=== PATIENT | female | born 1955 | race Caucasian/White ===

== ENCOUNTER → 2016-07-01 | Outpatient (CLI) | payer OTHER ==
[~2016-07-01] MED LIST: ACT35 PO; ASPEC81 PO; CALC1CHW57 PO; CLTP PO; FSMUNK; LRT5 PO; MULT-506 PO; MULT-513 PO; OMEG10007 PO
== END | disposition home or self-care (01) ==
LOC: C.MAMM 07:49
PROVIDERS: ATTEND Internal Medicine
DX: M81.0 Age-related osteoporosis without current pathological fracture (principal); M85.89 Other specified disorders of bone density and structure, multiple sites

== ENCOUNTER 2016-09-13 04:04 | Observation (INO) | payer OTHER ==
[~2016-09-13] VITALS: Ht 162.6 cm; Wt 51.0 kg
[~2016-09-13 04:04] MED LIST changes: -CALC1CHW57 PO; -MULT-506 PO
[2016-09-13] MEDS ORDERED: KETOROLAC TROMETHAMINE 30 MG/ML VIAL IV STA (04:26)
[2016-09-13 04:35] LABS: HEMATOCRIT 41.7 % (37-47); MEAN CELL VOLUME 88.2 fL (80-100); MEAN CORPUSCULAR HEMOGLOBIN 29.8 pg (25-34); MEAN CORPUSCULAR HGB CONC 33.8 g/dl (32-36); MEAN PLATELET VOLUME 10.4 fL (7.4-10.4); PLATELET COUNT 174 K/uL (130-400); RED BLOOD COUNT 4.73 M/uL (4.2-5.4); WHITE BLOOD COUNT 6.88 K/uL (4.8-10.8)
[2016-09-13] MEDS ORDERED: MULT-506 PO (04:37)
[2016-09-13] MEDS ORDERED: CALC1CHW57 PO (04:37)
[2016-09-13 04:53] LABS: ALT/SGPT 33 U/L (12-78); AST/SGOT 26 U/L (15-37); BLOOD UREA NITROGEN 11 mg/dl (7-18); BUN/CREATININE RATIO 12.2 (10-20); CALCIUM 8.5 mg/dl (8.5-10.1); CARBON DIOXIDE 33 mmol/L (21-32); CHLORIDE 107 mmol/L (98-107); CREATININE 0.88 mg/dl (0.60-1.20); GLUCOSE 85 mg/dl (70-99); POTASSIUM 4.1 mmol/L (3.5-5.1); SODIUM 144 mmol/L (136-145)
[2016-09-13 04:58] LABS: ALB/GLOB RATIO 1.5 (0.9-2); ALKALINE PHOSPHATASE 68 U/L (45-117); CKMB/CK RATIO 1.6 (0-3.0)
--- NOTE | 2016-09-13 04:58 | EMERGENCY ROOM VISIT NOTE ---
History Report prepared by Yens: Angela Sarmiento Under the Supervision of: Dr. Jessica Meyer D.O. First contact with patient: 04:14 Chief Complaint: CHEST PAIN Stated Complaint: CHEST PAIN History of Present Illness The patient is a 61 year old female who presents to the Emergency Room with complaints of persistent left sided chest pain starting a few minutes prior to arrival. She woke up with the chest discomfort. She denies any chest pain or discomfort prior to going to sleep. The patient cleaned and stained the deck all day two days ago. Her chest pain has improved since its initial onset. She currently rates a pain intensity of 2-3/10. She has worsening pain with lying down flat on her back. She denies any worsening pain with palpation or with movement of the left arm. Yesterday evening, the patient started having a headache. She took Tylenol around 11 pm with some relief. She denies any heart burn symptoms, diaphoresis, shortness of breath, nausea, vomiting, new lower extremity cramping/swelling, or any other complaints. Her mother had a myocardial infarction at 54 years old and her brother had a stroke at 58 years old. Due to her family history, the patient has routine cardiac work up every few years. The last time she received cardiac work up was about 4-5 years ago which was negative. The patient has borderline high cholesterol. The patient describes herself to be an active person. Source of History: patient Onset: a few minutes prior to arrival Position: chest (left) Symptom Intensity: 2-3/10 Timing: other (persistent) Modifying Factors (Worsening): other (lying down flat on back) Associated Symptoms: No diaphoresis, No SOB, No nausea, No vomiting Review of Systems See HPI for pertinent positives & negatives. A total of 10 systems reviewed and were otherwise negative. Past Medical & Surgical Medical Problems: (1) Borderline high cholesterol (2) Bunion, right foot Family History Cancer Diabetes mellitus Hypertension Lung disease Social History Smoking Status: Never Smoker Alcohol Use: none Marital Status: Housing Status: lives with significant other Occupation Status: employed Current/Historical Medications Scheduled Calcium W/ Vitamins D & K (Calcium + D), 1 TAB PO DAILY Fish Oil ([place]-3), 1 CAP PO DAILY Multivitamin (Multivitamin), 1 TAB PO DAILY Allergies Coded Allergies: Sulfa Antibiotics (Verified Allergy, Unknown, UNKNOWN, 09/13/16) Physical Exam Vital Signs Date Time Temp Pulse Resp B/P (MAP) Pulse Ox O2 Delivery O2 Flow Rate FiO2 09/13/16 06:15 48 16 146/74 98 Room Air 09/13/16 04:24 47 09/13/16 04:22 97 Room Air 09/13/16 04:18 53 18 156/74 100 Room Air 09/13/16 04:18 100 Room Air 09/13/16 04:09 36.4 53 20 120/69 99 Room Air Physical Exam HEENT: Head - normocephalic and atraumatic Pupils are equal, round, and reactive to light. Extraocular eye muscles are intact, and sclera are anicteric. Nose - moist nasal mucosa without discharge. Mouth - moist buccal mucosa. Oropharynx is nonerythematous and there is no tonsillar exudate or edema noted. Neck: Supple; no JVD, nuchal rigidity, cervical lymphadenopathy. Heart: Regular rate and rhythm. There is a normal S1 and S2 with no murmurs, clicks, or gallops appreciated. Lungs: Clear to auscultation bilaterally with no wheezes, rales, or rhonchi. Abdomen: Soft, completely nontender, nondistended, with good bowel sounds. There are no palpable pulsatile masses or hepatosplenomegaly. There is no guarding, rigidity, or rebound noted. Extremities: No evidence of cyanosis, clubbing, or edema. There are easily palpable peripheral pulses. Skin: warm and dry with good turgor and no rashes. Medical Decision & Procedures ER Provider Diagnostic Interpretation: X-ray results as stated below per interpretation by me: CHEST X-RAY No cardiomegaly, no pneumothorax, no pulmonary infiltrates. Laboratory Results 09/13/16 04:20 Red Blood Count 4.73, Mean Corpuscular Volume 88.2, Mean Corpuscular Hemoglobin 29.8, Mean Corpuscular Hemoglobin Concent 33.8, Mean Platelet Volume 10.4 09/13/16 04:20 Test 09/13/16 04:20 White Blood Count 6.88 K/uL (4.8-10.8) Red Blood Count 4.73 M/uL (4.2-5.4) Hemoglobin 14.1 g/dL (12.0-16.0) Hematocrit 41.7 % (37-47) Mean Corpuscular Volume 88.2 fL (80-100) Mean Corpuscular Hemoglobin 29.8 pg (25-34) Mean Corpuscular Hemoglobin Concent 33.8 g/dl (32-36) Platelet Count 174 K/uL (130-400) Mean Platelet Volume 10.4 fL (7.4-10.4) RDW Standard Deviation 41.0 fL (36.4-46.3) RDW Coefficient of Variation 12.7 % (11.5-14.5) Neutrophils % (Manual) 36.5 % Lymphocytes % (Manual) 41.8 % Variant Lymphocytes % (manual) 17.4 % Monocytes % (Manual) 1.7 % Eosinophils % (Manual) 2.6 % Neutrophils # (Manual) 2.51 K/uL (1.4-6.5) Total Absolute Neutrophils 2.51 K/uL (1.4-6.5) Lymphocytes # (Manual) 2.88 K/uL (1.2-3.4) Absolute Variant Lymphocytes 1.20 K/uL Total Absolute Lymphocytes 4.07 K/uL (1.2-3.4) Monocytes # (Manual) 0.12 K/uL (0.11-0.59) Eosinophils # (Manual) 0.18 K/uL (0-0.5) Smudge Cells PRESENT Toxic Vacuolation 1+ Ovalocytes 1+ Anion Gap 4.0 mmol/L (3-11) Est Creatinine Clear Calc Drug Dose 56.4 ml/min Estimated GFR () 82.2 Estimated GFR (Non- 70.9 BUN/Creatinine Ratio 12.2 (10-20) Calcium Level 8.5 mg/dl (8.5-10.1) Magnesium Level 2.3 mg/dl (1.8-2.4) Total Bilirubin 0.4 mg/dl (0.2-1) Aspartate Amino Transf (AST/SGOT) 26 U/L (15-37) Alanine Aminotransferase (ALT/SGPT) 33 U/L (12-78) Alkaline Phosphatase 68 U/L (45-117) Total Creatine Kinase 83 U/L (26-192) Creatine Kinase MB 1.3 ng/ml (0.5-3.6) Creatine Kinase MB Ratio 1.6 (0-3.0) Troponin I < 0.015 ng/ml (0-0.045) Total Protein 6.6 gm/dl (6.4-8.2) Albumin 4.0 gm/dl (3.4-5.0) Globulin 2.6 gm/dl (2.5-4.0) Albumin/Globulin Ratio 1.5 (0.9-2) Thyroid Stimulating Hormone (TSH) 2.950 uIu/ml (0.300-4.500) Laboratory results per my review. Medications Administered Medications (Trade) Dose Ordered Sig/Isrrael Route Start Time Stop Time Status Last Admin Dose Admin Ketorolac Tromethamine (Toradol Inj) 30 mg NOW STAT IV 09/13/16 04:26 09/13/16 04:28 DC 09/13/16 04:26 30 MG Procedure Toradol Inj 30 mg IV ECG Indication: chest pain Rate (beats per minute): 50 Rhythm: sinus bradycardia Findings: 1st degree AV block, no acute ischemic change, no ectopy ED Course 0414: Past medical records reviewed. The patient was evaluated in room A03. A complete history and physical exam was performed. An IV lock was initiated and labs are drawn as above. A twelve-lead EKG was obtained as described above. Patient was found to have normal blood pressure on screening and does not require follow-up. I attest that I have personally reviewed the patient's current medication list. 0426: Toradol Inj 30 mg IV 0522: Upon reevaluation, the patient reports some relief with Toradol. She is concerned about her heart due to her extensive family history of heart disease. I discussed findings and results with her. She verbalized agreement of the treatment plan. The patient will be evaluated for further management and care. 0531: I discussed the patient's case with Dr. Amanda, from [facility]. Medical Decision The patient presents to the Emergency Room with complaints of chest pain. Differential diagnosis includes but is not limited to musculoskeletal chest wall pain, pleurisy, costochondritis, cardiac ischemia. Her labs showed normal white count, stable, normal renal function and glucose, normal LFTs, negative cardiac enzymes. The patient is known to have mildly elevated cholesterol. It appears that her last cardiac stress test was in 2009. She does have significant family history for heart disease. I believe that she will require second set of cardiac enzymes to be ruled out and then possible cardiology evaluation and stress testing. I discussed the case with the [facility] and they will evaluate for further management. Consults Time Called: 529 Consulting Physician: Dr. Amanda, from [facility] Returned Call: 05 I discussed the patient's case with Dr. Amanda, from [facility]. Impression Primary Impression: Substernal chest pain Scribe Attestation The scribe's documentation has been prepared under my direction and personally reviewed by me in its entirety. I confirm that the note above accurately reflects all work, treatment, procedures, and medical decision making performed by me. Departure Information Dispostion Being Evaluated By Hospitalist Referrals Yassine Gonsales, D.O. (PCP) Patient Instructions My [facility]
[2016-09-13 05:46] LABS: COMPLETE YES; EOSINOPHIL % 2.6 %; LYMPH ABS # 2.88 K/uL (1.2-3.4); LYMPHOCYTE % 41.8 %; NEUTROPHILS % 36.5 %; OVALOCYTES 1+; SMUDGE CELLS PRESENT; VACUOLIZATION 1+; VARIANT LYMPHOCYTE % 17.4 %
[2016-09-13 06:15] VITALS: O2SAT 98
[2016-09-13 06:19] LABS: MAGNESIUM 2.3 mg/dl (1.8-2.4)
[2016-09-13 06:23] LABS: PARTIAL THROMBOPLASTIN RATIO 1.1
[2016-09-13] MEDS ORDERED: SODIUM CHLORIDE 0.45% 1000ML 1,000 ML IV SCH (06:49)
[2016-09-13] MEDS ORDERED: ALUMINUM/MAGNESIUM SUSP 30 ML UDC PO STA (06:49)
[2016-09-13] MEDS ORDERED: ASPIRIN 81 MG ECTAB PO STA (06:49)
[2016-09-13] MEDS ORDERED: NITROGLYCERIN 0.4 MG SL PER TAB CHARGE SL PRN (07:00)
[2016-09-13] MEDS ORDERED: ONDANSETRON INJ 2 MG/ML 2 ML VIAL IV PRN (07:00)
[2016-09-13] MEDS ORDERED: TRAMADOL HCL 50 MG TAB PO PRN (07:00)
[2016-09-13] MEDS ORDERED: ACETAMINOPHEN 325 MG TAB PO PRN (07:00)
[2016-09-13] MEDS ORDERED: LORAZEPAM 2 MG/ML 1 ML VIAL IV PRN (07:00)
[2016-09-13] MEDS ORDERED: HYDROmorphone INJ 1 MG/ML SYR IV PRN (07:00)
--- NOTE | 2016-09-13 07:27 | HISTORY & PHYSICAL EXAMINATION ---
DATE OF ADMISSION: 09/13/2016 PRIMARY CARE PHYSICIAN: Dr. Gonsales. CHIEF COMPLAINT: Chest pain. HISTORY OF PRESENT ILLNESS: History obtained from the patient and records. Medical history is significant for osteoporosis, skin cancer per surgery, hyperlipidemia. Yesterday, the patient had a busy time with ministry work. This morning, the patient woke up with left-sided chest pain, pressure like, no shortness of breath, no fever, no chills, no cough. Relief with Toradol given in the Emergency Room. MEDICAL HISTORY: As above. She had a normal stress echo in 2009 for chest pain attributed possibly from reflux from biphosphonate tx. SURGERIES: She has had bunion surgery, skin cancer surgery. HOME MEDICATIONS: Include Prolia, fish oil, calcium plus D, multivitamins, albuterol. FAMILY HISTORY: Heart disease. PERSONAL AND SOCIAL HISTORY: Nonsmoker, no chronic intake of alcoholic beverages. ministry work. REVIEW OF SYSTEMS: As per HPI, all other ROS negative. PHYSICAL EXAMINATION: VITAL SIGNS: Blood pressure was noted to be 156/80, pulse rate 50, respiratory rate 18, temperature 36.6, sats 98 on room air. GENERAL: Noted to be slightly anxious, no resp distress, looks younger for stated age. SKIN: Normal color. HEENT: [place] palpebral conjunctivae. Dry mucosa. NECK: No JVD. Supple. CHEST: Clear. No anterior chest wall tenderness. HEART: Bradycardic. ABDOMEN: Soft. EXTREMITIES: No edema, no tenderness. NEUROLOGIC: No gross focality. LABS: Hemoglobin 14, hematocrit 41, white cells 6.8, platelets 174. Sodium 144, potassium 4, chloride 104, CO2 30, BUN 11, creatinine 0.8, glucose 85. Troponin normal. 2016 lipid profile, cholesterol 206, HDL 70, triglycerides 60, LDL 123. Chest x-ray as per my interpretation : no infiltrate. EKG as per my interpretation : sinus bradycardia. 1AVB, no ischemia, PRWP ASSESSMENT: 1. Atypical chest pain pulmonary embolism versus acute coronary syndrome. 2. Situational hypertension 3. bradycardia, asymptomatic, poss chronic, px noted to have bradycardic episodes since 2007 4. osteoporosis. PLAN: Observation PCU. PE workup if D-dimer abnormal. Otherwise, stress test if next troponin normal. Aspirin for CAD prevention until ACS is ruled out. DVT prophylaxis. Lovenox subQ. Full code. MTDD
[2016-09-13 07:44] VITALS: BP 120/70; PULSE 48; TEMP 36.5; O2SAT 97
--- NOTE | 2016-09-13 07:45 | DIAGNOSTIC IMAGING REPORT ---
CHEST ONE VIEW PORTABLE CLINICAL HISTORY: Chest pain. COMPARISON STUDY: Chest radiograph October 24, 2007. FINDINGS: The lung volumes are normal. There is no pneumothorax or pleural effusion. Cardiac size is normal. Mediastinal contours are normal. There is no evidence of pulmonary edema. The patient is mildly rotated. IMPRESSION: No acute cardiopulmonary findings. Electronically signed by: Kashif Caraballo M.D. 09/13/2016 7:44 AM Dictated Date/Time: 09/13/2016 7:43 AM
[2016-09-13] MEDS ORDERED: IV FLUIDS COMPLETED PRN (08:00)
[2016-09-13] MEDS ORDERED: MULTIVITAMIN TAB PO SCH (09:00)
[2016-09-13 09:02] LABS: PROTHROMBIN TIME (PATIENT) 10.9 SECONDS (9.0-12.0)
[2016-09-13 09:25] VITALS: Ht 162.6 cm; Wt 51.0 kg
[2016-09-13] MEDS ORDERED: ENOXAPARIN 30 MG/0.3 ML SYR SC SCH (10:00)
--- NOTE | 2016-09-13 12:35 | EXERCISE STRESS ECHO ---
*NOTICE TO RECEIVING [employer]Y This information is strictly Confidential and protected under [place] law. [place] law prohibits you from making any further disclosure of this information unless further disclosure is expressly permitted by the written consent of the person to whom it pertains or is authorized by law. A general authorization for the release of medical or other information is not sufficient for this purpose. Hospital accepts no responsibility if the information is made available to any other person, INCLUDING THE PATIENT. Interpretation Summary * Name: ANJEL ZAVALETA Study Date: 09/13/2016 10:10 AM BP: 138/67 mmHg * Patient Location: [facility]\S\N280\S\2 HR: 47 * : 1955 (M/d/yyyy) Gender: Female Height: 64 in * Age: 61 yrs Ethnicity: [place] Weight: 117 lb * Ordering Physician: Willard Amanda * Referring Physician: TRAVIS * Performed By: Jennifer Leung RDCS * * Reason For Study: CHEST PAIN * BSA: 1.6 m2 * The study was technically adequate. * -- Conclusions -- * STRESS STUDY: * Normal exercise stress echocardiogram. * No echocardiographic or ECG evidence of myocardial ischemia having achieved heart rate adequate for diagnostic purposes. * No symptoms suggestive of angina were induced. * The heart rate and blood pressure responses to exercise were normal. * RESTING STUDY: * Mild aortic regurgitation is present. Procedure Details * ECHOEX, CPT #[id number] * ECHO DOPPLER, CPT #[id number] * ECHO COLOR FLOW, CPT #[id number] Left Ventricle * The left ventricle is normal in size. * There is normal left ventricular wall thickness. * Left ventricular systolic function is normal. * Ejection Fraction = 55-60%. * Resting wall motion: Normal. Stress wall motion: Appropriate increase in Left ventricular systolic function and decrease in cavity size. No stress induced segmental wall motion abnormalities. Right Ventricle * The right ventricle is normal in size and function. Atria * The left atrial size is normal. * Right atrial size is normal. * No ASD detected; PFO is not assessed. Mitral Valve * The mitral valve is normal. * There is no mitral valve stenosis. * There is trace mitral regurgitation. Tricuspid Valve * The tricuspid valve is normal. * There is no tricuspid stenosis. * There is trace tricuspid regurgitation. Aortic Valve * The aortic valve is trileaflet. * No hemodynamically significant valvular aortic stenosis. * Mild aortic regurgitation. Pulmonic Valve * The pulmonic valve is not well visualized. Great Vessels * The aortic root is normal size. Pericardium * There is no pericardial effusion. Stress Parameters * Normal baseline electrocardiogram. * The stress ECG response was normal * No arrhythmia were noted with stress. * The stress portion of this study was personally supervised by the undersigned interpreting physician. * Rest heart rate was '47' BPM. * Rest blood pressure was '138/67' * Maximum heart rate achieved was 153 bpm. * Maximum heart rate was 96 % of maximum age-predicted heart rate. * Maximum blood pressure was '192/63' * Total exercise time was '9:01' * Maximum exercise MET level achieved was '10.10' METS * Maximum treadmill speed was '3.40' miles per hour. * Maximum treadmill elevation was '14.30'% grade. * Exercise was terminated due to 'ACHIEVING TARGET HR' Left Ventricular Diastolic Function * The LV diastolic function is normal. MMode 2D Measurements and Calculations IVSd 0.79 cm IVSs 1.0 cm LVIDd 3.9 cm LVIDs 2.6 cm LVPWd 0.83 cm LVPWs 1.2 cm IVS/LVPW 0.95 FS 35.0 % EDV(Teich) 67.1 ml ESV(Teich) 23.6 ml EF(Teich) 64.9 % EDV(cubed) 60.7 ml ESV(cubed) 16.7 ml EF(cubed) 72.5 % % IVS thick 32.0 % % LVPW thick 40.0 % LV mass(C)d 91.9 grams LV mass(C)dI 59.0 grams/m\S\2 LV mass(C)s 76.0 grams LV mass(C)sI 48.8 grams/m\S\2 SV(Teich) 43.5 ml SI(Teich) 28.0 ml/m\S\2 SV(cubed) 44.0 ml SI(cubed) 28.2 ml/m\S\2 Ao root diam 2.9 cm Ao root area 6.5 cm\S\2 LA dimension 2.6 cm LA/Ao 0.92 LVAd ap4 21.9 cm\S\2 LVLd ap4 7.6 cm EDV(MOD-sp4) 51.1 ml EDV(sp4-el) 53.8 ml LVAs ap4 12.0 cm\S\2 LVLs ap4 6.1 cm ESV(MOD-sp4) 19.3 ml ESV(sp4-el) 20.1 ml EF(MOD-sp4) 62.2 % EF(sp4-el) 62.6 % LVAd ap2 29.1 cm\S\2 LVLd ap2 8.0 cm EDV(MOD-sp2) 88.6 ml EDV(sp2-el) 90.4 ml LVAs ap2 14.0 cm\S\2 LVLs ap2 6.2 cm ESV(MOD-sp2) 25.3 ml ESV(sp2-el) 26.8 ml EF(MOD-sp2) 71.5 % EF(sp2-el) 70.4 % LVLd %diff 4.9 % EDV(MOD-bp) 69.3 ml LVLs %diff 1.4 % ESV(MOD-bp) 22.4 ml EF(MOD-bp) 67.7 % SV(MOD-sp4) 31.8 ml SI(MOD-sp4) 20.4 ml/m\S\2 SV(MOD-sp2) 63.3 ml SI(MOD-sp2) 40.6 ml/m\S\2 SV(MOD-bp) 47.0 ml SI(MOD-bp) 30.2 ml/m\S\2 SV(sp4-el) 33.7 ml SI(sp4-el) 21.6 ml/m\S\2 SV(sp2-el) 63.6 ml SI(sp2-el) 40.9 ml/m\S\2 Doppler Measurements and Calculations MV E max arsen 110.5 cm/sec MV A max arsen 58.0 cm/sec MV E/A 1.9 MV dec time 0.19 sec Ao V2 max 151.2 cm/sec Ao max PG 9.1 mmHg Ao max PG (full) 4.6 mmHg AI max arsen 436.0 cm/sec AI max PG 76.1 mmHg AI dec slope 144.3 cm/sec\S\2 AI P1/2t 885.0 msec LV V1 max PG 4.6 mmHg LV V1 max 106.7 cm/sec
--- NOTE | 2016-09-13 14:02 | Progress Note ---
Internal Med Progress Note Date of Service: Sep 13, 2016. Provider Documentation: SUBJECTIVE: Patient is doing better. Left chest pain has improved with pain medication No sob, cough, fever, chills, nausea, vomiting. OBJECTIVE: Vital Signs-as noted below Exam: General-AAOX3 , no distress Neck-Supple Lungs-AEBE, no wheezing, crackles Heart-S1, S2 normal, no murmurs Abdomen-Soft,non tender, non distended, BS present Extremities- No edema Lab data as noted below. ASSESSMENT & PLAN: ASSESSMENT AND PLAN : ATYPICAL CHEST PAIN: Improved Ruled out ischemia. Likely musculoskeletal Work up- Stress echo- normal, EF 60%; Mild AR, D dimer- negative, CXR- no acute abnormalities, EKG- no acute ischemic changes, Troponin in x 2 pulmonary embolism versus acute coronary syndrome. MILD AR - per Echo -Needs Echo follow up in 1-2 years. TRANSIENT BRADYCARDIA HR dropped to 48- lowest, but overall in 50s -Active in her daily life - walks with her dogs 2-3 times up the hill -Monitor outpatient OSTEOPOROSIS -Continue with DVT prophylaxis. Lovenox subQ. Full code. DISPOSITION Okay to discharge home today Vital Signs: Date Time Temp Pulse Resp B/P (MAP) Pulse Ox O2 Delivery O2 Flow Rate FiO2 09/13/16 12:15 Room Air 09/13/16 09:25 Room Air 09/13/16 07:44 36.5 48 16 120/70 (87) 97 Room Air 09/13/16 06:58 57 09/13/16 06:15 48 16 146/74 98 Room Air 09/13/16 04:24 47 09/13/16 04:22 97 Room Air 09/13/16 04:18 53 18 156/74 100 Room Air 09/13/16 04:18 100 Room Air 09/13/16 04:09 36.4 53 20 120/69 99 Room Air Lab Results: Results Past 24 Hours Test 09/13/16 04:20 09/13/16 09:50 Range/Units White Blood Count 6.88 4.8-10.8 K/uL Red Blood Count 4.73 4.2-5.4 M/uL Hemoglobin 14.1 12.0-16.0 g/dL Hematocrit 41.7 37-47 % Mean Corpuscular Volume 88.2 80-100 fL Mean Corpuscular Hemoglobin 29.8 25-34 pg Mean Corpuscular Hemoglobin Concent 33.8 32-36 g/dl Platelet Count 174 130-400 K/uL Mean Platelet Volume 10.4 7.4-10.4 fL RDW Standard Deviation 41.0 36.4-46.3 fL RDW Coefficient of Variation 12.7 11.5-14.5 % Neutrophils % (Manual) 36.5 % Lymphocytes % (Manual) 41.8 % Variant Lymphocytes % (manual) 17.4 % Monocytes % (Manual) 1.7 % Eosinophils % (Manual) 2.6 % Neutrophils # (Manual) 2.51 1.4-6.5 K/uL Total Absolute Neutrophils 2.51 1.4-6.5 K/uL Lymphocytes # (Manual) 2.88 1.2-3.4 K/uL Absolute Variant Lymphocytes 1.20 K/uL Total Absolute Lymphocytes 4.07 1.2-3.4 K/uL Monocytes # (Manual) 0.12 0.11-0.59 K/uL Eosinophils # (Manual) 0.18 0-0.5 K/uL Smudge Cells PRESENT Toxic Vacuolation 1+ Ovalocytes 1+ Prothrombin Time 10.9 9.0-12.0 SECONDS Prothromb Time International Ratio 1.0 0.9-1.1 Activated Partial Thromboplast Time 28.5 21.0-31.0 SECONDS Partial Thromboplastin Ratio 1.1 D-Dimer < 190 0-500 ug/L FEU Sodium Level 144 136-145 mmol/L Potassium Level 4.1 3.5-5.1 mmol/L Chloride Level 107 98-107 mmol/L Carbon Dioxide Level 33 21-32 mmol/L Anion Gap 4.0 3-11 mmol/L Blood Urea Nitrogen 11 7-18 mg/dl Creatinine 0.88 0.60-1.20 mg/dl Est Creatinine Clear Calc Drug Dose 56.4 ml/min Estimated GFR () 82.2 Estimated GFR (Non- 70.9 BUN/Creatinine Ratio 12.2 10-20 Random Glucose 85 70-99 mg/dl Calcium Level 8.5 8.5-10.1 mg/dl Magnesium Level 2.3 1.8-2.4 mg/dl Total Bilirubin 0.4 0.2-1 mg/dl Aspartate Amino Transf (AST/SGOT) 26 15-37 U/L Alanine Aminotransferase (ALT/SGPT) 33 12-78 U/L Alkaline Phosphatase 68 45-117 U/L Total Creatine Kinase 83 26-192 U/L Creatine Kinase MB 1.3 0.5-3.6 ng/ml Creatine Kinase MB Ratio 1.6 0-3.0 Troponin I < 0.015 < 0.015 0-0.045 ng/ml Total Protein 6.6 6.4-8.2 gm/dl Albumin 4.0 3.4-5.0 gm/dl Globulin 2.6 2.5-4.0 gm/dl Albumin/Globulin Ratio 1.5 0.9-2 Lipase 284 73-393 U/L Thyroid Stimulating Hormone (TSH) 2.950 0.300-4.500 uIu/ml
--- NOTE | 2016-09-13 14:06 | Discharge Summary ---
Discharge Summary Date of Service Sep 13, 2016. Discharge Summary Admission Date: Sep 13, 2016 at 06:23 Discharge Date: Sep 13, 2016 Discharge Disposition: Home Principal Diagnosis: 1. Chest pain, acute ischemia ruled out Secondary Diagnoses/Problems: 1. Osteoporosis Procedures: Tele monitoring Stress Echocardiogram Serial EKG Serial Troponin CXR Consultations: None Pending Studies/Follow-Up: Instructions / Follow-Up Instructions / Follow-Up No changes in medications FOLLOW UP 1. Follow up with Dr Gonsales 09/20/16 at 1:05 PM MONITOR Follow up Echocardiogram in 1-2 years for mild aortic regurgitation newly diagnosed Medication Reconciliation Continued Medications: Calcium W/ Vitamins D & K (Calcium + D) 1 Chw Chw 1 TAB PO DAILY Fish Oil ([place]-3) 1 Ea Cap 1 CAP PO DAILY Multivitamin (Multivitamin) Tab 1 TAB PO DAILY, TAB Admission Information HPI (per Admitting provider): HISTORY OF PRESENT ILLNESS: History obtained from the patient and records. Medical history is significant for osteoporosis, skin cancer per surgery, hyperlipidemia. Yesterday, the patient had a busy time with [employer] work. This morning, the patient woke up with left-sided chest pain, pressure like, no shortness of breath, no fever, no chills, no cough. Relief with Toradol given in the Emergency Room. Hospital Course ASSESSMENT AND PLAN : ATYPICAL CHEST PAIN: Improved Ruled out ischemia. Likely musculoskeletal Work up- Stress echo- normal, EF 60%; Mild AR, D dimer- negative, CXR- no acute abnormalities, EKG- no acute ischemic changes, Troponin in x 2 pulmonary embolism versus acute coronary syndrome. MILD AR - per Echo -Needs Echo follow up in 1-2 years. TRANSIENT BRADYCARDIA HR dropped to 48- lowest, but overall in 50s -Active in her daily life - walks with her dogs 2-3 times up the hill -Monitor outpatient OSTEOPOROSIS -Continue with DVT prophylaxis. Lovenox subQ. Full code. DISPOSITION Okay to discharge home today Total time spent on discharge = 25 minutes This includes examination of the patient, discharge planning, medication reconciliation, and communication with other providers. Discharge Instructions Activity Recommendations Activity Limitations: resume your previous activity . Instructions / Follow-Up Instructions / Follow-Up No changes in medications FOLLOW UP 1. Follow up with Dr Gonsales 09/20/16 at 1:05 PM MONITOR Follow up Echocardiogram in 1-2 years for mild aortic regurgitation newly diagnosed Current Hospital Diet Patient's current hospital diet: Regular Diet Discharge Diet Recommended Diet: Regular Diet Pending Studies Studies pending at discharge: no Medical Emergencies . Who to Call and When: Medical Emergencies: If at any time you feel your situation is an emergency, please call 911 immediately. . Non-Emergent Contact Non-Emergency issues call your: Primary Care Provider . . "Provider Documentation" section prepared by Winifred Ríos. . VTE Core Measure Inpt VTE Proph given/why not?: Enoxaparin (Lovenox)SQ
[2016-09-13 14:13] VITALS: BP 120/70; PULSE 48; TEMP 36.5; O2SAT 97
[2016-09-14] MEDS ORDERED: ASPIRIN 81 MG ECTAB PO SCH (09:00)
== END 2016-09-13 14:25 | disposition home or self-care (01) ==
LOC: C.EDB 04:05 → C.MED 06:23 → ENRESERV 06:57
PROVIDERS: ADMIT Internal Medicine; ATTEND Internal Medicine
DX: R07.2 Precordial pain (principal); I35.1 Nonrheumatic aortic (valve) insufficiency; M81.0 Age-related osteoporosis without current pathological fracture; R00.1 Bradycardia, unspecified; E78.5 Hyperlipidemia, unspecified; Z82.49 Family history of ischemic heart disease and other diseases of the circulatory system; Z83.3 Family history of diabetes mellitus; Z85.820 Personal history of malignant melanoma of skin

== ENCOUNTER 2017-03-14 02:12 | Emergency (ER) | payer OTHER ==
[~2017-03-14] VITALS: Ht 162.6 cm; Wt 52.8 kg
[~2017-03-14 02:12] MED LIST changes: -ACT35 PO; -ASPEC81 PO; +CALC1CHW57 PO; -CLTP PO; -FSMUNK; -LRT5 PO; +MULT-506 PO; -MULT-513 PO
[2017-03-14 02:15] VITALS: TEMP 36.4; Ht 162.6 cm; Wt 52.8 kg
[2017-03-14] MEDS ORDERED: ONDANSETRON INJ 2 MG/ML 2 ML VIAL IV STA (02:33)
[2017-03-14] MEDS ORDERED: SODIUM CHLORIDE 0.9% 1000ML 1,000 ML IV ONE ×2 (02:45→04:15)
[2017-03-14 03:02] LABS: BASO % 0.2 %; BASO ABS # 0.02 K/uL (0-0.2); COMPLETE YES; HEMATOCRIT 42.2 % (37-47); IG% 0.1 %; LYMPH % 21.1 %; LYMPH ABS # 1.85 K/uL (1.2-3.4); MEAN CELL VOLUME 87.7 fL (80-100); MEAN CORPUSCULAR HEMOGLOBIN 30.1 pg (25-34); MEAN CORPUSCULAR HGB CONC 34.4 g/dl (32-36); MEAN PLATELET VOLUME 10.3 fL (7.4-10.4); NEUT % 73.6 %; PLATELET COUNT 138 K/uL (130-400); RED BLOOD COUNT 4.81 M/uL (4.2-5.4); WHITE BLOOD COUNT 8.76 K/uL (4.8-10.8)
[2017-03-14 03:06] LABS: URINE APPEARANCE CLEAR (CLEAR); URINE BILIRUBIN NEG (NEG); URINE COLOR YELLOW; URINE NITRITE NEG (NEG); UROBILINOGEN NEG (NEG); ZZUR CULT IF INDIC CLEAN CATCH NO
[2017-03-14 03:13] LABS: MANUAL MICROSCOPIC REQUIRED? YES; REVIEW REQ? NO
[2017-03-14 03:29] LABS: BUN/CREATININE RATIO 17.3 (10-20); CALCIUM 8.5 mg/dl (8.5-10.1); CREATININE 1.03 mg/dl (0.60-1.20); MAGNESIUM 1.7 mg/dl (1.8-2.4); POTASSIUM 3.4 mmol/L (3.5-5.1)
[2017-03-14 03:32] LABS: ALB/GLOB RATIO 1.4 (0.9-2)
[2017-03-14 03:40] LABS: URINE RBC 0-4 /hpf (0-4)
[2017-03-14 03:41] LABS: URINE BACTERIA NEG (NEG)
[2017-03-14 05:09] VITALS: BP 100/55; PULSE 74; O2SAT 98
[2017-03-14] MEDS ORDERED: ONDANSETRON HOME PACK 4MG OD TAB PO ONE (05:15)
--- NOTE | 2017-03-14 07:21 | DIAGNOSTIC IMAGING REPORT ---
PA CHEST RADIOGRAPH AND UPRIGHT AND SUPINE AP RADIOGRAPHS OF THE ABDOMEN CLINICAL HISTORY: Nausea, vomiting and diarrhea. COMPARISON STUDY: Chest radiograph September 13, 2016. FINDINGS: Lung volumes are normal. Lungs are clear. No pneumothorax or pleural effusion is present. Pulmonary vascularity is normal. Cardiomediastinal silhouette is normal. Nipple shadow projects over the right lung. There is no free air. The bowel gas pattern is normal. A dystrophic calcification within the pelvis could reflect a calcified fibroid. IMPRESSION: 1. No free air or evidence of bowel obstruction. 2. No acute cardiopulmonary findings. Electronically signed by: Kashif Caraballo M.D. 03/14/2017 7:20 AM Dictated Date/Time: 03/14/2017 7:18 AM
--- NOTE | 2017-03-14 23:05 | EMERGENCY ROOM VISIT NOTE ---
History First contact with patient: 02:21 Chief Complaint: GI ASSESSMENT Stated Complaint: ILLNESS Nursing Triage Summary: Patient reports N/V/D and abdominal pain since noon yesterday. UNable to keep fluids or food down. History of Present Illness The patient is a 61 year old female who presents to the Emergency Room with complaints of nausea, vomiting, and diarrhea that began about 12 hours ago. The patient states that she had her had been traveling over the weekend , and they ate out a restaurant for lunch. Roughly 2 hours after eating at the restaurant the patient began having some abdominal cramping which developed into hourly episodes of diarrhea. The patient has also had nausea with 3 episodes of emesis that was watery food product. The patient is having difficulty tolerating sips of fluids because of the nausea. She has not had recent antibiotic use, and does not have a history of abdominal surgery. The patient considers herself usually healthy and is not on regular medication. She rates her overall discomfort a 7/10 Review of Systems More than 10 systems were reviewed and otherwise negative with the exception of history of present illness. Past Medical/Surgical History Medical Problems: (1) Borderline high cholesterol (2) Bunion, right foot Family History Cancer Diabetes mellitus Hypertension Lung disease Social History Smoking Status: Never Smoker Alcohol Use: none Marital Status: Housing Status: lives with significant other Occupation Status: employed Current/Historical Medications Scheduled Calcium W/ Vitamins D & K (Calcium + D), 1 TAB PO DAILY Fish Oil ([place]-3), 1 CAP PO DAILY Multivitamin (Multivitamin), 1 TAB PO DAILY Physical Exam Vital Signs Date Time Temp Pulse Resp B/P (MAP) Pulse Ox O2 Delivery O2 Flow Rate FiO2 03/14/17 05:25 03/14/17 05:09 74 16 100/55 98 Room Air 03/14/17 02:15 36.4 80 18 87/58 99 Room Air Physical Exam VITALS: Vitals are noted on the nurse's note and reviewed by myself. Vital signs stable. GENERAL: Well-developed, well-nourished, white female who appears ill but nontoxic. MOUTH: Mucous membranes dry. Tonsils are not enlarged. Pharynx without erythema, blood, or exudate. Uvula midline. Airway patent. NECK: Supple without nuchal rigidity. No lymphadenopathy. No thyromegaly. Cervical spine is nontender. HEART: Regular rate and rhythm without murmurs gallops or rubs. LUNGS: Clear to auscultation bilaterally without wheezes, rales or rhonchi. No retractions or accessory muscle use. ABDOMEN: Positive normal bowel sounds x 4. Soft, nontender, without masses or organomegaly. No guarding or rebound tenderness. MUSCULOSKELETAL: No muscle atrophy, erythema, or edema noted. Full range of motion without joint tenderness in all extremities. Medical Decision & Procedures ER Provider Diagnostic Interpretation: PA CHEST RADIOGRAPH AND UPRIGHT AND SUPINE AP RADIOGRAPHS OF THE ABDOMEN CLINICAL HISTORY: Nausea, vomiting and diarrhea. COMPARISON STUDY: Chest radiograph September 13, 2016. FINDINGS: Lung volumes are normal. Lungs are clear. No pneumothorax or pleural effusion is present. Pulmonary vascularity is normal. Cardiomediastinal silhouette is normal. Nipple shadow projects over the right lung. There is no free air. The bowel gas pattern is normal. A dystrophic calcification within the pelvis could reflect a calcified fibroid. IMPRESSION: 1. No free air or evidence of bowel obstruction. 2. No acute cardiopulmonary findings. Laboratory Results 03/14/17 02:45 Red Blood Count 4.81, Mean Corpuscular Volume 87.7, Mean Corpuscular Hemoglobin 30.1, Mean Corpuscular Hemoglobin Concent 34.4, Mean Platelet Volume 10.3, Neutrophils (%) (Auto) 73.6, Lymphocytes (%) (Auto) 21.1, Monocytes (%) (Auto) 5.0, Eosinophils (%) (Auto) 0.0, Basophils (%) (Auto) 0.2, Neutrophils # (Auto) 6.44, Lymphocytes # (Auto) 1.85, Monocytes # (Auto) 0.44, Eosinophils # (Auto) 0.00, Basophils # (Auto) 0.02 03/14/17 02:45 Test 03/14/17 02:45 White Blood Count 8.76 K/uL (4.8-10.8) Red Blood Count 4.81 M/uL (4.2-5.4) Hemoglobin 14.5 g/dL (12.0-16.0) Hematocrit 42.2 % (37-47) Mean Corpuscular Volume 87.7 fL (80-100) Mean Corpuscular Hemoglobin 30.1 pg (25-34) Mean Corpuscular Hemoglobin Concent 34.4 g/dl (32-36) Platelet Count 138 K/uL (130-400) Mean Platelet Volume 10.3 fL (7.4-10.4) Neutrophils (%) (Auto) 73.6 % Lymphocytes (%) (Auto) 21.1 % Monocytes (%) (Auto) 5.0 % Eosinophils (%) (Auto) 0.0 % Basophils (%) (Auto) 0.2 % Neutrophils # (Auto) 6.44 K/uL (1.4-6.5) Lymphocytes # (Auto) 1.85 K/uL (1.2-3.4) Monocytes # (Auto) 0.44 K/uL (0.11-0.59) Eosinophils # (Auto) 0.00 K/uL (0-0.5) Basophils # (Auto) 0.02 K/uL (0-0.2) RDW Standard Deviation 41.5 fL (36.4-46.3) RDW Coefficient of Variation 12.9 % (11.5-14.5) Immature Granulocyte % (Auto) 0.1 % Immature Granulocyte # (Auto) 0.01 K/uL (0.00-0.02) Urine Color YELLOW Urine Appearance CLEAR (CLEAR) Urine pH 7.0 (4.5-7.5) Urine Specific [place] 1.020 (1.000-1.030) Urine Protein 1+ (NEG) Urine Glucose (UA) NEG (NEG) Urine Ketones 1+ (NEG) Urine Occult Blood NEG (NEG) Urine Nitrite NEG (NEG) Urine Bilirubin NEG (NEG) Urine Urobilinogen NEG (NEG) Urine Leukocyte Esterase NEG (NEG) Urine WBC (Auto) /hpf (0-5) Urine RBC (Auto) /hpf (0-4) Urine Hyaline Casts (Auto) /lpf (0-5) Urine Epithelial Cells (Auto) /lpf (0-5) Urine Bacteria (Auto) (NEG) Urine RBC 0-4 /hpf (0-4) Urine WBC 1-5 /hpf (0-5) Urine Epithelial Cells 5-10 /lpf (0-5) Urine Renal Epithelial Cells /lpf (0-5) Urine Bacteria NEG (NEG) Urine Hyaline Casts 1-5 /lpf (0-5) Anion Gap 3.0 mmol/L (3-11) Est Creatinine Clear Calc Drug Dose 47.8 ml/min Estimated GFR () 67.9 Estimated GFR (Non- 58.6 BUN/Creatinine Ratio 17.3 (10-20) Calcium Level 8.5 mg/dl (8.5-10.1) Magnesium Level 1.7 mg/dl (1.8-2.4) Total Bilirubin 0.8 mg/dl (0.2-1) Aspartate Amino Transf (AST/SGOT) 19 U/L (15-37) Alanine Aminotransferase (ALT/SGPT) 30 U/L (12-78) Alkaline Phosphatase 64 U/L (45-117) Total Protein 6.7 gm/dl (6.4-8.2) Albumin 3.9 gm/dl (3.4-5.0) Globulin 2.8 gm/dl (2.5-4.0) Albumin/Globulin Ratio 1.4 (0.9-2) Lipase 229 U/L (73-393) Medications Administered Medications (Trade) Dose Ordered Sig/Isrrael Route Start Time Stop Time Status Last Admin Dose Admin Sodium Chloride 1,000 ml @ 999 mls/hr Q1H1M ONCE IV 03/14/17 02:45 03/14/17 03:45 DC 03/14/17 02:50 999 MLS/HR Ondansetron HCl (Zofran Inj) 4 mg NOW STAT IV 03/14/17 02:33 03/14/17 02:35 DC 03/14/17 02:49 4 MG Sodium Chloride 1,000 ml @ 999 mls/hr Q1H1M ONCE IV 03/14/17 04:15 03/14/17 05:15 DC 03/14/17 04:15 999 MLS/HR ED Course Physical exam and history were performed. Nursing notes, EMR, and Medication List were personally reviewed. Patient appears to have nausea, vomiting, and diarrhea that began about 12 hours ago. The patient does appear dehydrated on physical examination. IV access was established and labs were obtained. She was hydrated with 2 L normal saline. She was given IV Zofran. The patient was able to give a urine specimen, but was not able to a stool sample. Patient's blood work is as above and was reviewed. She does not have a significantly elevated white blood cell count or gross anemia, bandemia, or significant electrolyte imbalance. Lipase and transaminases are nondiagnostic. Urine is without obvious signs of infection. X-ray does not show instructed or other process acutely. On reevaluation the patient felt well and was able to walk around her emergency room without lightheadedness or dizziness. She had significant improvement of her color, and reportedly felt much better. Overall the patient does appear well for discharge home. Clinically I suspect this is a foodborne or viral process that should improve with conservative care. I will provide the patient a course of Zofran to use at home. She is to follow-up with her primary care physician with any ongoing or persistent symptoms. The patient was pleased with this plan and voiced understanding. The chart was completed utilizing [employer] Speech Voice Recognition Software. Grammatical errors, random word insertions, pronoun errors, and incomplete sentences are an occasional consequence of this system due to software limitations, ambient noise, and hardware issues. Any formal questions or concerns about the content, text, or information contained within the body of this dictation should be directly addressed to the provider for clarification. . Medical Decision Differential diagnosis: Etiologies such as gastroenteritis, food borne illness, infections, appendicitis , diverticulitis, inflammatory bowel disease, obstruction, GI bleed, biliary pathology, as well as others were entertained. Impression Primary Impression: Nausea vomiting and diarrhea Departure Information Dispostion Home / Self-Care Condition GOOD Forms HOME CARE DOCUMENTATION FORM, IMPORTANT VISIT INFORMATION Patient Instructions My [facility] Additional Instructions You were seen and evaluated today on an emergency basis only. This is not a substitute for, or an effort to provide, complete comprehensive medical care. It is not possible to recognize and treat all injuries or illnesses in a single emergency department visit. For this reason it is recommended that you followup with your primary care physician for ongoing care and evaluation. Drink plenty of fluids and remain well hydrated. Zofran 4 mg ODT: Dissolve 1 tablet every 6 hrs as needed for nausea. You are welcome to return to the emergency department anytime with new, worsening, or concerning symptoms.
== END 2017-03-14 05:27 | disposition home or self-care (01) ==
LOC: C.EDB 02:13 → C.EDA 05:27
DX: R11.2 Nausea with vomiting, unspecified (principal); R19.7 Diarrhea, unspecified; Z80.9 Family history of malignant neoplasm, unspecified; Z83.3 Family history of diabetes mellitus; Z82.49 Family history of ischemic heart disease and other diseases of the circulatory system

== ENCOUNTER 2017-05-02 20:49 | Emergency (ER) | payer OTHER ==
[~2017-05-02] VITALS: Ht 162.6 cm; Wt 51.6 kg
[~2017-05-02 20:49] MED LIST changes: -OMEG10007 PO
[2017-05-02 20:58] VITALS: TEMP 37; Ht 162.6 cm; Wt 51.6 kg
[2017-05-02] MEDS ORDERED: ALUMINUM/MAGNESIUM SUSP 30 ML UDC PO STA (22:10)
[2017-05-02] MEDS ORDERED: LIDOCAINE HCL 2% VISC SOLN 20 ML UDC PO STA (22:10)
[2017-05-02 22:28] VITALS: O2SAT 99
[2017-05-02 22:39] LABS: BASO % 0.3 %; BASO ABS # 0.03 K/uL (0-0.2); EOS % 0.7 %; EOS ABS # 0.08 K/uL (0-0.5); HEMATOCRIT 41.8 % (37-47); HEMOGLOBIN 14.6 g/dL (12.0-16.0); IG# 0.02 K/uL (0.00-0.02); LYMPH % 36.4 %; LYMPH ABS # 3.89 K/uL (1.2-3.4); MEAN CELL VOLUME 86.4 fL (80-100); MEAN CORPUSCULAR HEMOGLOBIN 30.2 pg (25-34); MEAN CORPUSCULAR HGB CONC 34.9 g/dl (32-36); MEAN PLATELET VOLUME 10.2 fL (7.4-10.4); MONO % 3.9 %; MONO ABS # 0.42 K/uL (0.11-0.59); NEUT % 58.5 %; NEUT ABS # 6.26 K/uL (1.4-6.5); PLATELET COUNT 222 K/uL (130-400); RED CELL DISTRIBUTION WIDTH SD 41.5 fL (36.4-46.3)
[2017-05-02] MEDS ORDERED: SODIUM CHLORIDE 0.9% 500ML 500 ML IV STA (22:41)
[2017-05-02 22:57] LABS: ALBUMIN 4.5 gm/dl (3.4-5.0); ALT/SGPT 35 U/L (12-78); BLOOD UREA NITROGEN 12 mg/dl (7-18); CALCIUM 9.9 mg/dl (8.5-10.1); CARBON DIOXIDE 32 mmol/L (21-32); CREATININE 0.92 mg/dl (0.60-1.20); GLUCOSE 120 mg/dl (70-99); LIPASE 185 U/L (73-393); POTASSIUM 3.4 mmol/L (3.5-5.1); SODIUM 136 mmol/L (136-145)
[2017-05-02 23:02] LABS: ALKALINE PHOSPHATASE 66 U/L (45-117); AST/SGOT 32 U/L (15-37); TOTAL PROTEIN 7.4 gm/dl (6.4-8.2)
[2017-05-02] MEDS ORDERED: OMEG10007 PO (23:06)
[2017-05-03] MEDS ORDERED: SUCRALFATE 1 GM/10 ML UDC PO STA (00:34)
[2017-05-03] MEDS ORDERED: PANTOprazole SOD 40 MG TAB PO STA (01:23)
[2017-05-03] MEDS ORDERED: PANT40TA PO (01:25)
[2017-05-03 01:39] VITALS: BP 127/74; PULSE 61; O2SAT 97
--- NOTE | 2017-05-03 04:11 | EMERGENCY ROOM VISIT NOTE ---
History First contact with patient: 21:55 Chief Complaint: ABDOMINAL PAIN Stated Complaint: SEVER STOMACH PAIN, DIARRHEA Nursing Triage Summary: Pt complains of upper abdominal pain since 1230 pm. +nausea and diarrhea. History of Present Illness The patient is a 62 year old female who presents to the Emergency Room with complaints of epigastric discomfort since 2 PM with nausea and diarrhea. Patient states for lunch she had a lot of vegetables. She had a broccoli salad with mayonnaise, peppers and carrots. She then had a tangerine. Patient states later she had a few episodes of diarrhea. No blood or black in it. Patient then had a cappuccino. Patient states now she feels bloated and has epigastric discomfort. Nothing makes it better or worse. Pain is 4 out of 10. It does not radiate. She has tried nothing for her symptoms. Patient denies chest pain, dyspnea, fever, chills, vomiting, back pain, urinary symptoms. Review of Systems See HPI for pertinent positives & negatives. A total of 10 systems reviewed and were otherwise negative. Past Medical/Surgical History Medical Problems: (1) Borderline high cholesterol (2) Bunion, right foot Family History Cancer Diabetes mellitus Hypertension Lung disease Social History Smoking Status: Never Smoker Alcohol Use: none Drug Use: none Marital Status: Housing Status: lives with significant other Occupation Status: employed Current/Historical Medications Scheduled Calcium W/ Vitamins D & K (Calcium + D), 1 TAB PO DAILY Fish Oil ([place]-3), 1 CAP PO DAILY Multivitamin (Multivitamin), 1 TAB PO DAILY Pantoprazole (Protonix), 40 MG PO DAILY Physical Exam Vital Signs Date Time Temp Pulse Resp B/P (MAP) Pulse Ox O2 Delivery O2 Flow Rate FiO2 05/03/17 01:39 61 18 127/74 97 05/03/17 00:22 58 18 109/68 96 Room Air 05/02/17 23:00 55 18 144/77 95 Room Air 05/02/17 22:39 55 05/02/17 22:29 56 14 145/66 99 Room Air 05/02/17 22:28 99 Room Air 05/02/17 20:58 37.0 67 16 134/100 100 Room Air Physical Exam VITALS: Vitals are noted on the nurse's note and reviewed by myself. Vital signs stable. GENERAL: Pleasant female, in no acute distress, nondiaphoretic, well-developed well-nourished. SKIN: The skin was without rashes, erythema, edema, or bruising. There is no tenting of the skin. Capillary reflex less than 2 seconds. HEAD: Normocephalic atraumatic. EARS: External auditory canals clear, tympanic membranes pearly ramos without erythema or effusion bilaterally. EYES: Pupils equal round and reactive to light and accommodation. Conjunctivae without injection, sclerae without icterus. Extraocular movements intact. NOSE: Patent, turbinates without inflammation or discharge. MOUTH: Mucous membranes moist. Pharynx without erythema or exudate. Uvula midline. Airway patent. Tongue does not deviate. NECK: Supple without nuchal rigidity. No lymphadenopathy. No thyromegaly. Cervical spine is nontender. No JVD. HEART: Regular rate and rhythm . LUNGS: Clear to auscultation bilaterally without wheezes, rales or rhonchi. No dullness to percussion. No retractions or accessory muscle use. ABDOMEN: Positive bowel sounds x 4. Normal tympanic percussion. Soft, minimally tender epigastric region, no CVA tenderness, without masses or organomegaly. Barnhart sign negative. No guarding or rebound tenderness. MUSCULOSKELETAL: No muscle atrophy, erythema, or edema noted. NEURO: Patient was alert and oriented to person place and time. Normal sensation to light and sharp touch. No focal neurological deficits. Medical Decision & Procedures Laboratory Results 05/02/17 22:28 Red Blood Count 4.84, Mean Corpuscular Volume 86.4, Mean Corpuscular Hemoglobin 30.2, Mean Corpuscular Hemoglobin Concent 34.9, Mean Platelet Volume 10.2, Neutrophils (%) (Auto) 58.5, Lymphocytes (%) (Auto) 36.4, Monocytes (%) (Auto) 3.9, Eosinophils (%) (Auto) 0.7, Basophils (%) (Auto) 0.3, Neutrophils # (Auto) 6.26, Lymphocytes # (Auto) 3.89, Monocytes # (Auto) 0.42, Eosinophils # (Auto) 0.08, Basophils # (Auto) 0.03 05/02/17 22:28 Test 05/02/17 22:28 05/03/17 00:44 White Blood Count 10.70 K/uL (4.8-10.8) Red Blood Count 4.84 M/uL (4.2-5.4) Hemoglobin 14.6 g/dL (12.0-16.0) Hematocrit 41.8 % (37-47) Mean Corpuscular Volume 86.4 fL (80-100) Mean Corpuscular Hemoglobin 30.2 pg (25-34) Mean Corpuscular Hemoglobin Concent 34.9 g/dl (32-36) Platelet Count 222 K/uL (130-400) Mean Platelet Volume 10.2 fL (7.4-10.4) Neutrophils (%) (Auto) 58.5 % Lymphocytes (%) (Auto) 36.4 % Monocytes (%) (Auto) 3.9 % Eosinophils (%) (Auto) 0.7 % Basophils (%) (Auto) 0.3 % Neutrophils # (Auto) 6.26 K/uL (1.4-6.5) Lymphocytes # (Auto) 3.89 K/uL (1.2-3.4) Monocytes # (Auto) 0.42 K/uL (0.11-0.59) Eosinophils # (Auto) 0.08 K/uL (0-0.5) Basophils # (Auto) 0.03 K/uL (0-0.2) RDW Standard Deviation 41.5 fL (36.4-46.3) RDW Coefficient of Variation 13.0 % (11.5-14.5) Immature Granulocyte % (Auto) 0.2 % Immature Granulocyte # (Auto) 0.02 K/uL (0.00-0.02) Anion Gap 8.0 mmol/L (3-11) Est Creatinine Clear Calc Drug Dose 51.6 ml/min Estimated GFR () 77.3 Estimated GFR (Non- 66.7 BUN/Creatinine Ratio 12.5 (10-20) Calcium Level 9.9 mg/dl (8.5-10.1) Magnesium Level 2.1 mg/dl (1.8-2.4) Total Bilirubin 0.7 mg/dl (0.2-1) Direct Bilirubin 0.2 mg/dl (0-0.2) Aspartate Amino Transf (AST/SGOT) 32 U/L (15-37) Alanine Aminotransferase (ALT/SGPT) 35 U/L (12-78) Alkaline Phosphatase 66 U/L (45-117) Troponin I < 0.015 ng/ml (0-0.045) Total Protein 7.4 gm/dl (6.4-8.2) Albumin 4.5 gm/dl (3.4-5.0) Lipase 185 U/L (73-393) Bedside Troponin I < 0.030 ng/ml (0-0.045) Medications Administered Medications (Trade) Dose Ordered Sig/Isrrael Route Start Time Stop Time Status Last Admin Dose Admin Lidocaine HCl (Viscous Lidocaine 2% Soln) 10 ml NOW STAT PO 05/02/17 22:10 05/02/17 22:12 DC 05/02/17 22:37 10 ML Al Hydroxide/Mg Hydroxide (Maalox Susp) 30 ml NOW STAT PO 05/02/17 22:10 05/02/17 22:12 DC 05/02/17 22:37 30 ML Sodium Chloride 500 ml @ 999 mls/hr Q31M STAT IV 05/02/17 22:41 05/02/17 23:11 DC 05/02/17 22:41 999 MLS/HR Sucralfate (Carafate Susp) 1 gm NOW STAT PO 05/03/17 00:34 05/03/17 00:36 DC 05/03/17 00:54 1 GM Pantoprazole Sodium (Protonix Tab) 40 mg NOW STAT PO 05/03/17 01:23 05/03/17 01:24 DC 05/03/17 01:36 40 MG ED Course Prior records/ancillary studies reviewed. Triage Nursing notes reviewed. Additional history obtained from family. The patient's history was concerning for abdominal pain. Differential diagnosis: Etiologies such as appendicitis, diverticulitis, PUD, biliary pathology, UTI, pancreatitis, obstruction, mesenteric ischemia, aortic pathology, infections, inflammatory bowel disease, renal colic, as well as others were entertained. Physical examination findings: As above. ER treatment provided: GI cocktail, Carafate, Protonix On reassessment the patient felt better. Diagnostics interpreted by me: ECG: Normal sinus, normal intervals, no acute ST-T wave changes. Impression sinus bradycardia interpreted by myself The labs revealed 2 troponins 2 greater than 2 hours apart. Mild hyperglycemia Imaging studies: US GALLBLADDER: Gallbladder is unremarkable. Common bile duct is normal. Echogenic rounded focus at the upper pole of the right kidney measuring 1.[address] would be definitive. No other abnormality. Radiologist: Adryan Quijano M.D. Exam and history seem consistent with epigastric discomfort likely related to reflux. She did feel better after being medicated as above. She did not have acute abdomen on exam. She had no episodes of diarrhea while in the ER. She's had no recent antibiotics. She is not on well water. Symptoms started shortly after eating a large amount of vegetables. She is advised to take medications as directed, rest, stay well-hydrated and follow-up family care in a few days or here in the ER sooner for severe pain, fevers, vomiting, worsening signs or symptoms or as needed.By the evaluation outlined above emergent etiologies such as appendicitis, diverticulitis, PUD, biliary pathology, UTI, pancreatitis, obstruction, mesenteric ischemia, aortic pathology, infections, inflammatory bowel disease, renal colic, as well as others were deemed relatively unlikely. The pt informed about the findings as listed above. All questions were answered and pleased with the treatment. Return instructions were outlined and the patient was discharged in stable condition. Outpatient prescription management: Protonix Referral: The patient was referred back to their primary care physician for follow-up in 2 to 3 days for a recheck of the current condition. Case reviewed with my attending Medical Decision As above Medication Reconcilliation Current Medication List: was personally reviewed by me Blood Pressure Screening Patient's blood pressure: Normal blood pressure Impression Primary Impression: Abdominal discomfort, epigastric Additional Impression: Hypokalemia Departure Information Dispostion Home / Self-Care Condition GOOD Prescriptions Pantoprazole (Protonix) 40 Mg Tab 40 MG PO DAILY for 14 Days, #14 TAB Prov: Yazmin Dexter .SNEHAL 05/03/17 Forms Call Back Authorization, HOME CARE DOCUMENTATION FORM, IMPORTANT VISIT INFORMATION Patient Instructions GERD, My [facility] Additional Instructions You had an incidental finding on your ultrasound of a possible very small lipoma on your kidney. Follow-up with family care for this. Protonix 40 m tablet daily for next 2 weeks. Take this on an empty stomach. Try Maalox or Zantac for breakthrough symptoms for reflux. Avoid large meals. Avoid acidic foods. Rest and drink plenty of fluids as tolerated. Continue current medications. Avoid strenuous activities and anything that worsens your pain. Resume normal activities once your symptoms resolve. Return to the ER immediately for worsening or persistent chest pain, abdominal pain, black or blood in your stools, vomiting, fevers, chest pains, difficulty breathing, worsening of your condition, or as needed. Follow up with your primary physician in 2-3 days for a recheck of your current condition. Problem Qualifiers
--- NOTE | 2017-05-03 07:02 | DIAGNOSTIC IMAGING REPORT ---
GALLBLADDER-ABD LIMITED HISTORY: 62 years-old Female epi pain acute epigastric abdominal pain COMPARISON: Right upper quadrant ultrasound 06/09/2009 TECHNIQUE: Multiple real-time sonographic images of the abdominal right upper quadrant were obtained assessing grayscale appearance and color flow FINDINGS: The imaged pancreas is unremarkable. No pancreatic ductal dilation. Liver is within normal limits without focal mass or intrahepatic biliary ductal dilation. Gallbladder is within normal limits without shadowing cholelithiasis, wall thickening or pericholecystic fluid. Negative sonographic Barnhart's sign. Common bile duct is normal, 5 mm. Right kidney measures 9.8 cm in length and demonstrates mild fullness of the collecting system which is likely within normal limits. No nomi hydronephrosis or shadowing calculi identified. There is a round homogeneous echogenic structure of the superior pole right kidney measuring up to 1.1 cm. IMPRESSION: 1. No cholelithiasis or sonographic evidence of acute cholecystitis. 2. No biliary ductal dilation. 3. 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 This could be further evaluated with CT. The above report was generated using voice recognition software. It may contain grammatical, syntax or spelling errors. Electronically signed by: Jimmy Paredes M.D. 05/03/2017 7:01 AM Dictated Date/Time: 05/03/2017 6:58 AM
== END 2017-05-03 01:40 | disposition home or self-care (01) ==
LOC: C.EDB 20:50
DX: R10.13 Epigastric pain (principal); E87.6 Hypokalemia; Z80.9 Family history of malignant neoplasm, unspecified; Z83.3 Family history of diabetes mellitus; Z82.49 Family history of ischemic heart disease and other diseases of the circulatory system

== ENCOUNTER 2017-06-30 12:15 | Observation (INO) | payer OTHER ==
[~2017-06-30] VITALS: Ht 162.6 cm; Wt 53.6 kg
[~2017-06-30 12:15] MED LIST changes: +OMEG10007 PO
[2017-06-30] MEDS ORDERED: DENO60SO INJ (12:28)
[2017-06-30] MEDS ORDERED: MoRPHine SULFATE 4 MG/ML 1 ML CARP\\VIAL IV STA (12:39)
[2017-06-30 13:12] LABS: BASO % 0.2 %; BASO ABS # 0.03 K/uL (0-0.2); EOS ABS # 0.14 K/uL (0-0.5); HEMATOCRIT 41.3 % (37-47); HEMOGLOBIN 14.2 g/dL (12.0-16.0); IG# 0.04 K/uL (0.00-0.02); LYMPH % 30.8 %; LYMPH ABS # 4.21 K/uL (1.2-3.4); MEAN CELL VOLUME 86.2 fL (80-100); MEAN CORPUSCULAR HEMOGLOBIN 29.6 pg (25-34); MEAN CORPUSCULAR HGB CONC 34.4 g/dl (32-36); MEAN PLATELET VOLUME 10.1 fL (7.4-10.4); MONO % 4.9 %; MONO ABS # 0.67 K/uL (0.11-0.59); NEUT % 62.8 %; NEUT ABS # 8.59 K/uL (1.4-6.5); PLATELET COUNT 204 K/uL (130-400); WHITE BLOOD COUNT 13.68 K/uL (4.8-10.8)
[2017-06-30 13:40] LABS: CALCIUM 9.5 mg/dl (8.5-10.1); CREATININE 0.97 mg/dl (0.60-1.20); POTASSIUM 3.3 mmol/L (3.5-5.1)
--- NOTE | 2017-06-30 13:46 | DIAGNOSTIC IMAGING REPORT ---
AP PELVIS, LEFT HIP 2 VIEWS CLINICAL HISTORY: Left hip pain. COMPARISON STUDY: None. FINDINGS: No fracture or dislocation within the pelvis or hips. The sacrum is intact. Calcification within the right side of the pelvis may represent a calcified uterine fibroid. This measures 1.4 cm. Cartilage spaces are maintained. IMPRESSION: No significant abnormality within the pelvis or hips. Electronically signed by: Jone Cardenas M.D. 06/30/2017 1:45 PM Dictated Date/Time: 06/30/2017 1:42 PM
[2017-06-30] MEDS ORDERED: KETOROLAC TROMETHAMINE 30 MG/ML VIAL IV STA (13:50)
[2017-06-30] MEDS ORDERED: OPTIRAY 320 IV PRN (14:00)
--- NOTE | 2017-06-30 14:19 | DIAGNOSTIC IMAGING REPORT ---
CT L HIP-LOWER EXTREMITY WITH CT DOSE: 195.38 mGy.cm CLINICAL HISTORY: Severe left hip pain TECHNIQUE: The patient was scanned in a dynamic helical fashion during intravenous administration of 92 cc of Optiray 320. Sagittal and coronal reformatted images were acquired. A dose lowering technique was utilized adhering to the principles of ALARA. COMPARISON STUDY: Conventional radiographic study dated 06/30/2017 FINDINGS: There is no pathologic adenopathy. Incidental note is made of calcified uterine fibroids. No abnormal soft tissue masses are visualized. No fractures are visualized. No destructive lesions are evident. No inguinal hernia is visualized. There are minor osteoarthritic changes present within the left hip. IMPRESSION: 1. Minor left hip osteoarthritis 2. No evidence of fracture. No destructive lesions are visualized 3. No evidence of pathologic adenopathy. No soft tissue masses identified. No evidence of inguinal hernia. Electronically signed by: Connor Brewer M.D. 06/30/2017 2:18 PM Dictated Date/Time: 06/30/2017 2:14 PM
[2017-06-30] MEDS ORDERED: HYDROmorphone INJ 0.5 MG/0.5 ML SYR IV STA (14:36)
[2017-06-30] MEDS ORDERED: POLYETHYLENE (MIRALAX) 17 GM PACK PO PRN (16:15)
[2017-06-30] MEDS ORDERED: ONDANSETRON INJ 2 MG/ML 2 ML VIAL IV PRN (16:15)
[2017-06-30] MEDS ORDERED: MAGNESIUM HYDROXIDE SUSP 30 ML UDC PO PRN (16:15)
[2017-06-30] MEDS ORDERED: KETOROLAC TROMETHAMINE 15 MG/ML VIAL IV PRN (16:15)
[2017-06-30] MEDS ORDERED: ALUMINUM/MAGNESIUM/SIMETH (MAALOX MAX) 30 ML UDC PO PRN (16:15)
[2017-06-30] MEDS ORDERED: ACETAMINOPHEN 325 MG TAB PO PRN (16:15)
--- NOTE | 2017-06-30 16:15 | History and Physical ---
History & Physical Date & Time of Service: Jun 30, 2017 at 16:15 Chief Complaint: Hip Pain Primary Care Physician: Yassine Gonsales D.OBernard History of Present Illness Source: patient This is a 62-year-old female, with no significant past medical history Presented to ER with acute left hip pain very active at baseline, Patient denies of any episode of fall/trauma [place] pain on her left hip radiation down to the left groin intermittently for the past 2-3 days. 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 Pain was constant. In ER patient required multiple doses of pain medications including Toradol, morphine, IV Dilaudid. Imaging of the pelvis shows no evidence of fracture, no joint disease Past Medical/Surgical History Medical Problems: (1) Abdominal discomfort, epigastric (2) Abdominal discomfort, epigastric (3) Borderline high cholesterol (4) Bunion, right foot (5) Hypokalemia (6) Left hip pain (7) Nausea vomiting and diarrhea (8) Nausea vomiting and diarrhea (9) Substernal chest pain Family History Cancer Diabetes mellitus Hypertension Lung disease Social History Smoking Status: Never Smoker Drug Use: none Marital Status: Occupational Status: employed Multi-Drug Resistant Organisms History of MDRO: No Allergies Coded Allergies: Sulfa Antibiotics (Verified Allergy, Unknown, UNKNOWN, 09/13/16) Home Medications Scheduled Calcium W/ Vitamins D & K (Calcium + D), 1 TAB PO DAILY Denosumab (Prolia), 1 DOSE INJ EVERY 6 MONTHS Fish Oil ([place]-3), 1 CAP PO DAILY Multivitamin (Multivitamin), 1 TAB PO DAILY Review of Systems Constitutional: No fever, No chills, No sweats, No weight loss, No weakness, No fatigue, No problem reported Eyes: No worsening of vision, No eye pain, No redness, No discharge, No diplopia, No problem reported ENT: No hearing loss, No unusual epistaxis, No nasal symptoms, No sore throat, No tinnitus, No dental problems, No trouble swallowing, No problem reported Respiratory: No cough, No sputum, No wheezing, No shortness of breath, No dyspnea on exertion, No dyspnea at rest, No hemoptysis, No problem reported Cardiovascular: No chest pain, No orthopnea, No PND, No edema, No claudication , No palpitations, No problem reported Abdomen: No pain, No nausea, No vomiting, No diarrhea, No constipation, No GI bleeding, No problem reported Musculoskeletal: + problem reported (Severe left hip pain with radiation down to left groin and left upper thigh area) Genitourinary - Female: No dysuria, No urinary frequency, No urinary urgency, No urinary incontinence, No urinary retention, No hematuria, No dysmenorrhea, No menorrhagia, No metrorrhagia, No rash, No vaginal bleeding, No vaginal discharge, No vaginal itching, No vulvodynia, No , No problem reported Neurologic: No memory loss, No paralysis, No weakness, No numbness/tingling, No vertigo, No balance problems, No problem reported Physical Exam Vital Signs Date Time Temp Pulse Resp B/P (MAP) Pulse Ox O2 Delivery O2 Flow Rate FiO2 06/30/17 13:19 52 24 181/74 100 Room Air 06/30/17 13:05 98 Room Air 06/30/17 12:27 36.3 73 24 175/86 100 Room Air General Appearance: + moderate distress (Due to left hip pain) Head: normocephalic, atraumatic Eyes: normal inspection, PERRL, EOMI, sclerae normal Neck: no adenopathy, no carotid bruits, trachea midline Respiratory/Chest: lungs clear, normal breath sounds, no respiratory distress Cardiovascular: regular rate, rhythm, no edema Abdomen/GI: normal bowel sounds, non tender, soft Extremities/Musculoskelatal: + pertinent finding (Tenderness on palpation of left anterior spinous process, no swelling minimum hip movement due to pain) Neurologic/Psych: no motor/sensory deficits, alert, normal mood/affect, oriented x 3 Skin: normal color, warm/dry, no rash Diagnostics Laboratory Results Results Past 24 Hours Test 06/30/17 12:55 06/30/17 16:12 Range/Units White Blood Count 13.68 4.8-10.8 K/uL Red Blood Count 4.79 4.2-5.4 M/uL Hemoglobin 14.2 12.0-16.0 g/dL Hematocrit 41.3 37-47 % Mean Corpuscular Volume 86.2 80-100 fL Mean Corpuscular Hemoglobin 29.6 25-34 pg Mean Corpuscular Hemoglobin Concent 34.4 32-36 g/dl Platelet Count 204 130-400 K/uL Mean Platelet Volume 10.1 7.4-10.4 fL Neutrophils (%) (Auto) 62.8 % Lymphocytes (%) (Auto) 30.8 % Monocytes (%) (Auto) 4.9 % Eosinophils (%) (Auto) 1.0 % Basophils (%) (Auto) 0.2 % Neutrophils # (Auto) 8.59 1.4-6.5 K/uL Lymphocytes # (Auto) 4.21 1.2-3.4 K/uL Monocytes # (Auto) 0.67 0.11-0.59 K/uL Eosinophils # (Auto) 0.14 0-0.5 K/uL Basophils # (Auto) 0.03 0-0.2 K/uL RDW Standard Deviation 41.0 36.4-46.3 fL RDW Coefficient of Variation 13.0 11.5-14.5 % Immature Granulocyte % (Auto) 0.3 % Immature Granulocyte # (Auto) 0.04 0.00-0.02 K/uL Urine Color YELLOW Urine Appearance TURBID CLEAR Urine pH 8.5 4.5-7.5 Urine Specific [place] 1.013 1.000-1.030 Urine Protein NEG NEG Urine Glucose (UA) NEG NEG Urine Ketones NEG NEG Urine Occult Blood NEG NEG Urine Nitrite NEG NEG Urine Bilirubin NEG NEG Urine Urobilinogen NEG NEG Urine Leukocyte Esterase NEG NEG Urine WBC (Auto) 1-5 0-5 /hpf Urine RBC (Auto) 0-4 0-4 /hpf Urine Hyaline Casts (Auto) 0 0-5 /lpf Urine Epithelial Cells (Auto) 10-20 0-5 /lpf Urine Bacteria (Auto) NEG NEG Sodium Level 136 136-145 mmol/L Potassium Level 3.3 3.5-5.1 mmol/L Chloride Level 100 98-107 mmol/L Carbon Dioxide Level 26 21-32 mmol/L Anion Gap 10.0 3-11 mmol/L Blood Urea Nitrogen 19 7-18 mg/dl Creatinine 0.97 0.60-1.20 mg/dl Est Creatinine Clear Calc Drug Dose 50.9 ml/min Estimated GFR () 72.5 Estimated GFR (Non- 62.6 BUN/Creatinine Ratio 19.2 10-20 Random Glucose 107 70-99 mg/dl Calcium Level 9.5 8.5-10.1 mg/dl Diagnostic Radiology X-ray of pelvis/left hip Impression: No significant abnormality within the pelvis or hips CT of left hip: Impression: 1. Minor left hip osteoarthritis 2. No evidence of fracture, no destructive lesion visualized 3. No evidence of pathology adenopathy. No soft tissue masses identified. No evidence of inguinal hernia Impression Assessment and Plan Acute left hip pain: Not sure of the etiology-, no report of fall/trauma -CT Hip shows no evidence of fracture -Differentials include: Possible bursitis versus sciatica -Admit to medical surgical -Ordered for IV Toradol, as needed 0.5 Dilaudid for severe pain -Pain management consulted Patient may-benefit from steroid injection for possible bursitis -PT OT Hypokalemia: Patient mentions had one episode of vomiting due to severe pain -Ordered for replacement -Repeat PRP in AM DVT prophylaxis: Low risk SCD and teds Ambulate CODE STATUS: Full code Disposition: Ordered for PT OT evaluation Expected to be discharged home when medically stable Medicine follow-up with Dr.S Gonsales Level of Care Med/Surg Resuscitation Status FULL RESUSCITATION VTE Prophylaxis Risk Level: Moderate Given or contraindicated: Lauren Keys, SCD's Additional Copies To Yassine Gonsales, D.O.
[2017-06-30] MEDS ORDERED: IV FLUIDS COMPLETED PRN (16:30)
--- NOTE | 2017-06-30 17:08 | EMERGENCY ROOM VISIT NOTE ---
History First contact with patient: 12:34 Chief Complaint: HIP PAIN Stated Complaint: HIP PAIN History of Present Illness The patient is a 62 year old female who presents to the Emergency Room via private vehicle accompanied by with complaints of "hip pain". The patient states that for the past few days she has had left-sided hip pain. It is been worsening with standing. She denies injury or trauma. She has a history of hip problems in the past but none recently. She points to the left ASIS as a location of pain that radiates inward to the deep left hip joint region/pelvis. She rates the overall pain as a 10/10. She denies any urinary symptoms. No abdominal pain. No fevers or chills. No chest pain or shortness of breath. Review of Systems A complete 10-point Review of Systems was discussed with the patient, with pertinent positives and negatives listed in the History of Present Illness. All remaining Review of Systems questions can be considered negative unless otherwise specified. Past Medical/Surgical History Medical Problems: (1) Borderline high cholesterol (2) Bunion, right foot (3) Left hip pain Family History Cancer Diabetes mellitus Hypertension Lung disease Social History Smoking Status: Never Smoker Alcohol Use: none Drug Use: none Marital Status: Housing Status: lives with significant other Occupation Status: employed Current/Historical Medications Scheduled Calcium W/ Vitamins D & K (Calcium + D), 1 TAB PO DAILY Denosumab (Prolia), 1 DOSE INJ EVERY 6 MONTHS Fish Oil ([place]-3), 1 CAP PO DAILY Multivitamin (Multivitamin), 1 TAB PO DAILY Physical Exam Vital Signs Date Time Temp Pulse Resp B/P (MAP) Pulse Ox O2 Delivery O2 Flow Rate FiO2 06/30/17 17:07 75 16 118/71 99 06/30/17 16:40 75 16 118/71 99 Room Air 06/30/17 13:19 52 24 181/74 100 Room Air 06/30/17 13:05 98 Room Air 06/30/17 12:27 36.3 73 24 175/86 100 Room Air Physical Exam VITAL SIGNS - Vital signs and nursing notes were reviewed. Stable. Hypertensive likely secondary to situation. GENERAL -62-year-old female appearing her stated age who is in no acute distress. Communicates well with provider and answers questions appropriately. SKIN - Without rashes. No meningeal, petechial or herpetic rash overlying the left anterior hip/left anterior abdomen. HEAD - NC/AT. EYES - Sclera anicteric. EARS - No deformities of external structures noted on gross examination bilaterally. NOSE - Midline and without cyanosis. No epistaxis or purulent drainage noted. MOUTH/OROPHARYNX - Without perioral cyanosis. ABDOMINAL: No tenderness to palpation. EXTREMITIES -there is tenderness palpation overlying the left ASIS region. It extends deep to the hip. No greater trochanter tenderness. No length discrepancy of legs. NEUROLOGIC - Cranial nerves II through XII grossly intact. PSYCH - A&O, and cooperates fully with examiner. Pt is very pleasant and interacts well with examiner. Medical Decision & Procedures ER Provider Diagnostic Interpretation: AP PELVIS, LEFT HIP 2 VIEWS CLINICAL HISTORY: Left hip pain. COMPARISON STUDY: None. FINDINGS: No fracture or dislocation within the pelvis or hips. The sacrum is intact. Calcification within the right side of the pelvis may represent a calcified uterine fibroid. This measures 1.4 cm. Cartilage spaces are maintained. IMPRESSION: No significant abnormality within the pelvis or hips. Electronically signed by: Jone Cardenas M.D. 06/30/2017 1:45 PM Dictated Date/Time: 06/30/2017 1:[address] L HIP-LOWER EXTREMITY WITH CT DOSE: 195.38 mGy.cm CLINICAL HISTORY: Severe left hip pain TECHNIQUE: The patient was scanned in a dynamic helical fashion during intravenous administration of 92 cc of Optiray 320. Sagittal and coronal reformatted images were acquired. A dose lowering technique was utilized adhering to the principles of ALARA. COMPARISON STUDY: Conventional radiographic study dated 06/30/2017 FINDINGS: There is no pathologic adenopathy. Incidental note is made of calcified uterine fibroids. No abnormal soft tissue masses are visualized. No fractures are visualized. No destructive lesions are evident. No inguinal hernia is visualized. There are minor osteoarthritic changes present within the left hip. IMPRESSION: 1. Minor left hip osteoarthritis 2. No evidence of fracture. No destructive lesions are visualized 3. No evidence of pathologic adenopathy. No soft tissue masses identified. No evidence of inguinal hernia. Electronically signed by: Connor Brewer M.D. 06/30/2017 2:18 PM Dictated Date/Time: 06/30/2017 2:14 PM Laboratory Results 06/30/17 12:55 Red Blood Count 4.79, Mean Corpuscular Volume 86.2, Mean Corpuscular Hemoglobin 29.6, Mean Corpuscular Hemoglobin Concent 34.4, Mean Platelet Volume 10.1, Neutrophils (%) (Auto) 62.8, Lymphocytes (%) (Auto) 30.8, Monocytes (%) (Auto) 4.9, Eosinophils (%) (Auto) 1.0, Basophils (%) (Auto) 0.2, Neutrophils # (Auto) 8.59, Lymphocytes # (Auto) 4.21, Monocytes # (Auto) 0.67, Eosinophils # (Auto) 0.14, Basophils # (Auto) 0.03 06/30/17 12:55 Test 06/30/17 12:55 White Blood Count 13.68 K/uL (4.8-10.8) Red Blood Count 4.79 M/uL (4.2-5.4) Hemoglobin 14.2 g/dL (12.0-16.0) Hematocrit 41.3 % (37-47) Mean Corpuscular Volume 86.2 fL (80-100) Mean Corpuscular Hemoglobin 29.6 pg (25-34) Mean Corpuscular Hemoglobin Concent 34.4 g/dl (32-36) Platelet Count 204 K/uL (130-400) Mean Platelet Volume 10.1 fL (7.4-10.4) Neutrophils (%) (Auto) 62.8 % Lymphocytes (%) (Auto) 30.8 % Monocytes (%) (Auto) 4.9 % Eosinophils (%) (Auto) 1.0 % Basophils (%) (Auto) 0.2 % Neutrophils # (Auto) 8.59 K/uL (1.4-6.5) Lymphocytes # (Auto) 4.21 K/uL (1.2-3.4) Monocytes # (Auto) 0.67 K/uL (0.11-0.59) Eosinophils # (Auto) 0.14 K/uL (0-0.5) Basophils # (Auto) 0.03 K/uL (0-0.2) RDW Standard Deviation 41.0 fL (36.4-46.3) RDW Coefficient of Variation 13.0 % (11.5-14.5) Immature Granulocyte % (Auto) 0.3 % Immature Granulocyte # (Auto) 0.04 K/uL (0.00-0.02) Prothrombin Time 10.4 SECONDS (9.0-12.0) Prothromb Time International Ratio 1.0 (0.9-1.1) Urine Color YELLOW Urine Appearance TURBID (CLEAR) Urine pH 8.5 (4.5-7.5) Urine Specific [place] 1.013 (1.000-1.030) Urine Protein NEG (NEG) Urine Glucose (UA) NEG (NEG) Urine Ketones NEG (NEG) Urine Occult Blood NEG (NEG) Urine Nitrite NEG (NEG) Urine Bilirubin NEG (NEG) Urine Urobilinogen NEG (NEG) Urine Leukocyte Esterase NEG (NEG) Urine WBC (Auto) 1-5 /hpf (0-5) Urine RBC (Auto) 0-4 /hpf (0-4) Urine Hyaline Casts (Auto) 0 /lpf (0-5) Urine Epithelial Cells (Auto) 10-20 /lpf (0-5) Urine Bacteria (Auto) NEG (NEG) Anion Gap 10.0 mmol/L (3-11) Est Creatinine Clear Calc Drug Dose 50.9 ml/min Estimated GFR () 72.5 Estimated GFR (Non- 62.6 BUN/Creatinine Ratio 19.2 (10-20) Calcium Level 9.5 mg/dl (8.5-10.1) Magnesium Level 2.1 mg/dl (1.8-2.4) Medications Administered Medications (Trade) Dose Ordered Sig/[place] Route Start Time Stop Time Status Last Admin Dose Admin Morphine Sulfate (MoRPHine SULFATE INJ) 4 mg NOW STAT IV 06/30/17 12:39 06/30/17 12:40 DC 06/30/17 13:00 4 MG Ketorolac Tromethamine (Toradol Inj) 30 mg NOW STAT IV 06/30/17 13:50 06/30/17 13:51 DC 06/30/17 13:55 30 MG Hydromorphone HCl (Dilaudid Inj) 0.5 mg NOW STAT IV 06/30/17 14:36 06/30/17 14:37 DC 06/30/17 14:47 0.5 MG Potassium Chloride (Klor-Con M10) 20 meq STK-MED ONCE .ROUTE 06/30/17 17:11 06/30/17 17:12 DC 06/30/17 17:11 20 MEQ Medical Decision Patient was seen and evaluated as above. Stable. Review was performed of nursing notes and vital signs. After obtaining a thorough history and physical examination the above work up was performed. She was given morphine for pain. X-ray was obtained. No acute fracture. She was informed upon the fibroid noted. Decision was made to obtain a CT noting a leukocytosis and her amount of pain. This was with contrast. Again no emergent process. I suspect she likely has a nerve irritation in his left anterior hip region. She was given Toradol and subsequently Dilaudid with persistence of pain. I do believe that inpatient management is warranted secondary to amount of pain and the patient notes that she would like to stay secondary to how much pain she is experiencing. Other than the slight leukocytosis, no significant anemia or emergent metabolic process. Case was discussed with the attending physician, and subsequently the hospitalist. She will be admitted for further evaluation and management. In the evaluation and treatment of this patient, the following differential diagnoses were considered: Hip Fracture, Hip Dislocation, Greater Trochanteric Bursitis, Musculoskeletal Pain, Lumbar Radiculopathy. Impression Primary Impression: Left hip pain Additional Impression: Hypokalemia Departure Information Referrals Yassine Gonsales, D.O. (PCP) Patient Instructions My [facility] Problem Qualifiers
[2017-06-30] MEDS ORDERED: POTASSIUM CHLORIDE 10 MEQ TABCR ONE (17:11)
[2017-06-30] MEDS ORDERED: HYDROmorphone INJ 0.5 MG/0.5 ML SYR IV PRN (17:45)
[2017-06-30] MEDS ORDERED: DOCUSATE SODIUM 100 MG CAP PO PRN (17:45)
[2017-06-30] MEDS ORDERED: POTASSIUM CHLORIDE 10 MEQ TABCR PO STA (18:24)
[2017-06-30 18:33] VITALS: BP 125/73; PULSE 74; TEMP 36.7; O2SAT 100
[2017-06-30 19:00] VITALS: Ht 162.6 cm; Wt 53.6 kg
[2017-06-30] MEDS ORDERED: NSS + 20MEQ KCL 1000ML 1,000 ML IV SCH (21:15)
[2017-06-30 23:52] VITALS: BP 91/54; PULSE 61; TEMP 36.5; O2SAT 96
[2017-07-01] VITALS: O2SAT 99
[2017-07-01 08:00] VITALS: O2SAT 99
[2017-07-01 08:08] VITALS: BP 98/67; PULSE 65; TEMP 36.6; O2SAT 96
[2017-07-01 08:16] LABS: HEMATOCRIT 38.4 % (37-47); HEMOGLOBIN 12.9 g/dL (12.0-16.0); MEAN CELL VOLUME 87.7 fL (80-100); MEAN CORPUSCULAR HEMOGLOBIN 29.5 pg (25-34); MEAN CORPUSCULAR HGB CONC 33.6 g/dl (32-36); PLATELET COUNT 193 K/uL (130-400); RED CELL DISTRIBUTION WIDTH CV 13.1 % (11.5-14.5); RED CELL DISTRIBUTION WIDTH SD 42.1 fL (36.4-46.3); WHITE BLOOD COUNT 9.55 K/uL (4.8-10.8)
[2017-07-01 08:56] LABS: CREATININE 0.91 mg/dl (0.60-1.20); POTASSIUM 3.6 mmol/L (3.5-5.1)
[2017-07-01] MEDS ORDERED: LIDODERM (LIDOCAINE) PATCH 5% TD SCH (09:00)
[2017-07-01] MEDS ORDERED: POLYETHYLENE (MIRALAX) 17 GM PACK PO SCH (09:00)
[2017-07-01] MEDS ORDERED: CALCIUM 600MG + VIT D 400 IU TAB PO SCH (09:00)
[2017-07-01] MEDS ORDERED: MULTIVITAMIN TAB PO SCH (09:00)
[2017-07-01] MEDS ORDERED: OMEGA-3 (PURIFIED FISH OIL) 1 GM CAP PO SCH (09:00)
[2017-07-01] MEDS ORDERED: HYDROCODONE/ACETAMIN 5/325MG TAB PO PRN (10:00)
--- NOTE | 2017-07-01 10:22 | Pain Clinic Procedure Note ---
Pain Management Procedure Note Procedure Date Jul 01, 2017. Procedure Description Procedure Time Out: side/site verified, patient ID confirmed, correct procedure Consent Obtained: written Performed By: Dr. Katie Patterson Indications: diagnostic, therapeutic Contraindications: none Pre Procedure Vital Signs Date Time Temp Pulse Resp B/P (MAP) Pulse Ox O2 Delivery O2 Flow Rate FiO2 07/01/17 08:08 36.6 65 16 98/67 (77) 96 Room Air 07/01/17 08:00 99 Room Air ASA Class: 2 Description: GREATER TROCHANTERIC BURSA INJECTION Diagnosis: Greater Trochanteric Bursitis Surgeon: Dr. Katie Patterson Side: Left Anesthesia:local Material forwarded to lab: none Prior to starting, the Patients diagnosis and the procedure were reviewed with the patient in detail. Possible risks, complications and alternative therapies were also reviewed. Patients questions were answered. Informed consent was obtained. Allergies and medication list was reviewed. Immediately prior to starting the procedure, a time out was conducted with the staff and the patient where the patient was identified, proposed procedure was verified, consent was reviewed and the proper site for the planned procedure was identified. Patient was not given any intravenous sedation and constant verbal contact was maintained throughout the procedure. There was no sign of infection at the site of needle insertion. The hip and surrounding tissues was prepped with a prep consisting of chloraprep. Sterile drapes were applied. A 25 gauge was inserted until the tip was in contact with the greater trochanter of the femur and was then withdrawn slightly. Next, a solution containing 40 mg of triamcinalone acetonide and 4cc of preservation free 0.25% bupivacaine was injected via the needle gradually. Patient did not experience any pain, paresthesia or discomfort throughout the injection period. Needle was then flushed and withdrawn. Adequate hemostasis was noted. A sterile Band-Aid was applied at the injection site. Patient was then placed in supine position. Report was given to the floor RN. Any specific questions were answered. Emergency phone numbers and contact information was relayed. Patient voiced understanding of the instructions. Complications: none Patient Tolerated Procedure: well Post-procedure Vital Signs: reviewed and stable Discharge Instructions: reviewed & understood
--- NOTE | 2017-07-01 11:07 | Pain Clinic New Patient (H&P) ---
Pain Clinic New Patient Date of Service Jul 01, 2017. Chief Complaint Left-sided hip pain Pain Location 1 - History of Present Illness 62-year-old healthy and active female who presents with 2-3 days of left hip pain. 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 She subsequently presented to the [facility] emergency room for further evaluation and care. She denies any inciting event or past pain in the left-sided hip. She states that the pain is on the lateral margin of her hip stabbing aching Starburst in character. She reports that pain is improved with rest and worse with activity ranging between 5 and 7 out of 10. She states that prior to presenting to the emergency room pain was 10 out of 10. She denies any low back pain or any radicular component of her pain. She denies any bowel or bladder incontinence, motor weakness, footdrop, falls, fever , chills, night sweats. Past Medical/Surgical History (1) Left hip pain (2) Borderline high cholesterol (3) Bunion, right foot Social / Work History Smoking Status: Never Smoker Smokeless Tobacco Use: No Alcohol Use: No Previous History of Alcoholism: No Use of Alcohol with Medication: No Drug Use: none Marital Status: Housing Status: lives with significant other Occupation: employed Family History no contributory Home Medications Scheduled Calcium W/ Vitamins D & K (Calcium + D), 1 TAB PO DAILY Denosumab (Prolia), 1 DOSE INJ EVERY 6 MONTHS Fish Oil (Shade-3), 1 CAP PO DAILY Multivitamin (Multivitamin), 1 TAB PO DAILY Allergies Coded Allergies: Sulfa Antibiotics (Verified Allergy, Unknown, UNKNOWN, 09/13/16) Review of Systems Constitutional: Negative for fever, chills, sweats Eyes: Negative for eye pain, photophobia, drainage Ear, nose, mouth, throat: Negative for ear pain, nasal congestion, mouth lesions , change in voice Respiratory: Negative for wheezing, sputum production Cardiovascular: Negative for chest pain, palpitations, calf pain Gastrointestinal: Negative for abdominal pain, belching, bloating Genitourinary: Negative for dysuria, urinary incontinence, urinary urgency Musculoskeletal: Negative for deformities Integumentary: Negative for nail changes, skin yellowing, pruritus Neurological: Negative for abnormal speech, seizure type activity Physical Exam Date Time Temp Pulse Resp B/P (MAP) Pulse Ox O2 Delivery O2 Flow Rate FiO2 07/01/17 08:08 36.6 65 16 98/67 (77) 96 Room Air 07/01/17 08:00 99 Room Air 07/01/17 00:00 99 Room Air 06/30/17 23:52 36.5 61 18 91/54 (66) 96 Room Air 06/30/17 19:00 Room Air 06/30/17 18:33 36.7 74 16 125/73 (90) 100 Room Air 06/30/17 17:07 75 16 118/71 99 06/30/17 16:40 75 16 118/71 99 Room Air 06/30/17 13:19 52 24 181/74 100 Room Air 06/30/17 13:05 98 Room Air 06/30/17 12:27 36.3 73 24 175/86 100 Room Air Height 5 feet, 4.00 inches. Weight 53.600 (Kilograms) 118 (Pounds) Constitutional: Well-developed, well-nourished, healthy-appearing, normal weight Psych: Awake, alert, and oriented 3 with normal affect and mood. Recent memory appears grossly intact Eyes: Pupils are equally round and reactive to light with normal size pupils, eyelids appear normal Ear, nose, mouth, and throat: Moist nasal and oral membranes, lips and tongues appear normal, no external ear abnormalities are noted Neck: The trachea is midline without deviation and no thyromegaly is noted Respiratory: Normal respiratory effort without distress, no audible wheezes or rhonchi CV: Normal S1 and S2, carotid upstroke is within normal limits Chest: Deferred Musculoskeletal: Head is normocephalic and atraumatic, gait is not observed the patient is able to logroll with minimal discomfort within the hospital bed Cervical: Lordotic curve: Normal Range of motion is normal with extension, flexion, side- bending, rotation Strength: Strength is grossly equal bilaterally with 5 out of 5 strength in all planes Thoracic: Kyphotic curve: Normal Range of motion is normal with extension, flexion, side- bending, rotation Lumbar: Lordotic curve: Normal Range of motion is normal with extension, flexion, side- bending, rotation Tenderness: Nontender over the axial midline Facet provocation: Negative bilaterally Straight leg raise: Negative bilaterally Step-off injuries: None Strength: Strength is equal bilaterally with 5 out of 5 strength in all planes Sensation of lower extremities: Intact bilaterally Deep tendon reflexes: Rated at 2+ in bilateral L4 and S1 Myofascial spasm: No appreciable spasm. No discrete trigger points noted Greater trochanters: Nontender over right but exquisitely tender over the left Sacroiliac joints: Nontender over the right mildly tender over the left Fabere and Gaenslens: negative bilaterally Pathologic reflexes noted: None Skin: No rashes, lesions, ulcers, and duration are noted Neuro: No nystagmus noted, the tongue is midline, the patient is able to rotate their head bilaterally : Deferred Laboratory Laboratory Findings Test 05/02/17 22:28 05/03/17 00:44 06/30/17 12:55 07/01/17 07:34 Range/Units Total Bilirubin 0.7 0.2-1 mg/dl Direct Bilirubin 0.2 0-0.2 mg/dl Aspartate Amino Transferase (AST) 32 15-37 U/L Alanine Aminotransferase (ALT) 35 12-78 U/L Alkaline Phosphatase 66 45-117 U/L Troponin I < 0.015 0-0.045 ng/ml Total Protein 7.4 6.4-8.2 gm/dl Albumin 4.5 3.4-5.0 gm/dl Lipase 185 73-393 U/L POC Troponin I < 0.030 0-0.045 ng/ml Immature Granulocyte % (Auto) 0.3 % White Blood Count 13.68 H 9.55 4.8-10.8 K/uL Red Blood Count 4.79 4.38 4.2-5.4 M/uL Hemoglobin 14.2 12.9 12.0-16.0 g/dL Hematocrit 41.3 38.4 37-47 % Mean Corpuscular Volume 86.2 87.7 80-100 fL Mean Corpuscular Hemoglobin 29.6 29.5 25-34 pg Mean Corpuscular Hemoglobin Concent 34.4 33.6 32-36 g/dl Platelet Count 204 193 130-400 K/uL Mean Platelet Volume 10.1 10.0 7.4-10.4 fL Neutrophils (%) (Auto) 62.8 % Lymphocytes (%) (Auto) 30.8 % Monocytes (%) (Auto) 4.9 % Eosinophils (%) (Auto) 1.0 % Basophils (%) (Auto) 0.2 % Neutrophils # (Auto) 8.59 H 1.4-6.5 K/uL Lymphocytes # (Auto) 4.21 H 1.2-3.4 K/uL Monocytes # (Auto) 0.67 H 0.11-0.59 K/uL Eosinophils # (Auto) 0.14 0-0.5 K/uL Basophils # (Auto) 0.03 0-0.2 K/uL Immature Granulocyte # (Auto) 0.04 H 0.00-0.02 K/uL Prothrombin Time 10.4 9.0-12.0 SECONDS Prothrombin Time INR 1.0 0.9-1.1 Urine Color YELLOW Urine Appearance TURBID CLEAR Urine pH 8.5 H 4.5-7.5 Urine Specific Man 1.013 1.000-1.030 Urine Protein NEG NEG Urine Glucose (UA) NEG NEG Urine Ketones NEG NEG Urine Occult Blood NEG NEG Urine Nitrite NEG NEG Urine Bilirubin NEG NEG Urine Urobilinogen NEG NEG Urine Leukocyte Esterase NEG NEG Urine WBC (Auto) 1-5 0-5 /hpf Urine RBC (Auto) 0-4 0-4 /hpf Urine Hyaline Casts (Auto) 0 0-5 /lpf Urine Epithelial Cells (Auto) 10-20 H 0-5 /lpf Urine Bacteria (Auto) NEG NEG Magnesium Level 2.1 1.8-2.4 mg/dl RDW Standard Deviation 42.1 36.4-46.3 fL RDW Coefficient of Variation 13.1 11.5-14.5 % Sodium Level 138 136-145 mmol/L Potassium Level 3.6 3.5-5.1 mmol/L Chloride Level 104 98-107 mmol/L Carbon Dioxide Level 28 21-32 mmol/L Anion Gap 5.0 3-11 mmol/L Blood Urea Nitrogen 14 7-18 mg/dl Creatinine 0.91 0.60-1.20 mg/dl Est Creatinine Clear Calc Drug Dose 54.2 ml/min Estimated GFR () 78.4 Estimated GFR (Non- 67.6 BUN/Creatinine Ratio 15.5 10-20 Random Glucose 78 70-99 mg/dl Calcium Level 8.0 #L 8.5-10.1 mg/dl Imaging CT: reports reviewed CT Findings Patient: ANJEL ZAVALETA SAGE Address1: [address] [facility] Rec: [id number] Address2: Acct ID: [id number] [facility] Zip: [place] [address] Date: 1955 Sex: F Room/Bed: Ref Phy: Yassine Gonsales D.O. SC: DOMINIQUE Att Phy: Report #: [id number] Carmina Phy: Yassine Gonsales D.O. Test: HIPW Admit Phy: Head Scorer: MALLORY Interpreting Phy: Connor Brewer M.D. Diagnosis: HIP PAIN Ordering Phy: Renny Edwards PA-C Service Date: 06/30/17 Admit Date: 06/30/17 MNE: [id number] CONF: DICTATED BY: Connor Brewer M.D.]] CC: Renny Edwards PA-C McKinley, Daniel F., M.D. Newhouser, Shane D., D.O. Endcc: [~ rep ct add3]] CT L HIP-LOWER EXTREMITY WITH CT DOSE: 195.38 mGy.cm CLINICAL HISTORY: Severe left hip pain TECHNIQUE: The patient was scanned in a dynamic helical fashion during intravenous administration of 92 cc of Optiray 320. Sagittal and coronal reformatted images were acquired. A dose lowering technique was utilized adhering to the principles of ALARA. COMPARISON STUDY: Conventional radiographic study dated 06/30/2017 FINDINGS: There is no pathologic adenopathy. Incidental note is made of calcified uterine fibroids. No abnormal soft tissue masses are visualized. No fractures are visualized. No destructive lesions are evident. No inguinal hernia is visualized. There are minor osteoarthritic changes present within the left hip. IMPRESSION: 1. Minor left hip osteoarthritis 2. No evidence of fracture. No destructive lesions are visualized 3. No evidence of pathologic adenopathy. No soft tissue masses identified. No evidence of inguinal hernia. Radiology: reports reviewed Radiology Findings Patient: ANJEL ZAVALETA Address1: [address] [facility] Rec: [id number] Address2: Acct ID: [id number] [facility] Zip: [place] [address] Date: 1955 Sex: F Room/Bed: Ref Phy: Yassine Gonsales D.OBernard SC: DOMINIQUE Att Phy: Report #: [id number] Carmina Phy: Yassine Gonsales D.O. Test: [id number] Admit Phy: Head Scorer: ROBERTO Interpreting Phy: Jone Cardenas MD Diagnosis: HIP PAIN Ordering Phy: Renny Edwards PA-C Service Date: 06/30/17 Admit Date: 06/30/17 MNE: [id number] CONF: DICTATED BY: Jone Cardenas M.D.]] CC: Renny Edwards PA-C McKinley, Daniel F., M.D. Newhouser, Shane D., D.O. Endcc: [~ rep ct add3]] AP PELVIS, LEFT HIP 2 VIEWS CLINICAL HISTORY: Left hip pain. COMPARISON STUDY: None. FINDINGS: No fracture or dislocation within the pelvis or hips. The sacrum is intact. Calcification within the right side of the pelvis may represent a calcified uterine fibroid. This measures 1.4 cm. Cartilage spaces are maintained. IMPRESSION: No significant abnormality within the pelvis or hips. Past Records Previous Records: none available for review Opioid Risk Assessment Risk assessment performed, no issues identified Assessment 1. Left-sided greater trochanteric bursitis 2. Possible left-sided inflammatory sacroiliitis 3. Left-sided hip pain 4. Minor left hip osteoarthritis Recommendations 1. The patient's most exquisite area of pain is directly over the left greater trochanteric bursa therefore a greater trochanteric bursa injection was performed on the left side today. Please see the procedure note associated with this visit for further details. 2. Recommend utilization of Lidoderm patch and [place] 5/325 mg 1 p.o. every 4-6 as needed pain 3. I am happy to see the patient in follow-up in my office as an outpatient should she require additional care. 4. Thank you for this consultation
[2017-07-01] MEDS ORDERED: BUPIVACAINE 0.5 % 5 MG/1 ML PF 10ML VIAL ONE (12:42)
[2017-07-01] MEDS ORDERED: TRIAMCINOLONE ACET 40 MG/ML VIAL ONE (12:43)
[2017-07-01 14:52] VITALS: BP 98/67; PULSE 65; TEMP 36.6; O2SAT 96
[2017-07-01] MEDS ORDERED: CLC100X PO (15:17)
[2017-07-01] MEDS ORDERED: HYDR-5688 PO (15:17)
--- NOTE | 2017-07-01 15:20 | Discharge Instructions ---
Discharge Instructions Date of Service Jul 01, 2017. Admission Reason for Admission: Left Hip Pain Discharge Discharge Diagnosis / Problem: Left hip bursitis Discharge Goals Goal(s): Therapeutic intervention Activity Recommendations Activity Limitations: as noted below Lifting Limitations: gradually increase as tolerated Exercise/Sports Limitations: gradually increase as tolerated . Instructions / Follow-Up Instructions / Follow-Up Please see Dr. Gonsales on July 05 at 1:45PM for hospital follow up. Please follow up with Dr. Patterson in Pain management clinic at [facility] as discussed Current Hospital Diet Patient's current hospital diet: Regular Diet Discharge Diet Recommended Diet: Regular Diet Pending Studies Studies pending at discharge: no Medical Emergencies . Who to Call and When: Medical Emergencies: If at any time you feel your situation is an emergency, please call 911 immediately. . Non-Emergent Contact Non-Emergency issues call your: Primary Care Provider . . "Provider Documentation" section prepared by No Roberson. .
[2017-07-01 15:30] VITALS: BP 109/70; PULSE 56; TEMP 36.3; O2SAT 97
--- NOTE | 2017-07-01 23:10 | Discharge Summary ---
Discharge Summary Date of Service Jul 01, 2017. Discharge Summary Admission Date: Jun 30, 2017 at 16:09 Discharge Date: Jul 01, 2017 Discharge Disposition: Home Principal Diagnosis: Left Hip Greater Trochanteric bursitis, left inflammatory sacroiliitis Procedures: Hip injection Consultations: Pain management Medication Reconciliation New Medications: Docusate Sodium (Docusate Sodium) 100 Mg Cap 100 MG PO BID PRN for const, #30 CAP Hydrocodone/Acetaminophen 5MG/325MG (Elma 5MG/325MG) Tab 1 TAB PO Q6 PRN for Pain, #20 TAB PRN PAIN Continued Medications: Calcium W/ Vitamins D & K (Calcium + D) 1 Chw Chw 1 TAB PO DAILY Denosumab (Prolia) 60 Mg/Ml Lori 1 DOSE INJ EVERY 6 MONTHS Fish Oil (Naples-3) 1 Ea Cap 1 CAP PO DAILY Multivitamin (Multivitamin) Tab 1 TAB PO DAILY, TAB Admission Information HPI (per Admitting provider): This is a 62-year-old female, with no significant past medical history Presented to ER with acute left hip pain very active at baseline, Patient denies of any episode of fall/trauma [place] pain on her left hip radiation down to the left groin intermittently for the past 2-3 days. 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 Pain was constant. In ER patient required multiple doses of pain medications including Toradol, morphine, IV Dilaudid. Imaging of the pelvis shows no evidence of fracture, no joint disease Physical Exam (per Admitting): General Appearance: + moderate distress (Due to left hip pain) Head: normocephalic, atraumatic Eyes: normal inspection, PERRL, EOMI, sclerae normal Neck: no adenopathy, no carotid bruits, trachea midline Respiratory/Chest: lungs clear, normal breath sounds, no respiratory distress Cardiovascular: regular rate, rhythm, no edema Abdomen/GI: normal bowel sounds, non tender, soft Extremities/Musculoskelatal: + pertinent finding (Tenderness on palpation of left anterior spinous process, no swelling minimum hip movement due to pain) Neurologic/Psych: no motor/sensory deficits, alert, normal mood/affect, oriented x 3 Skin: normal color, warm/dry, no rash Hospital Course ACUTE LEFT HIP PAIN: -no report of fall/trauma -CT Hip negative for fracture, mild osteoarthritis -given IV Toradol, and 0.5 Dilaudid for severe pain -Pain management consulted, suspect patient has possible left inflammatory sacroiliitis and left greater trochanteric bursitis s/p local injection which seems to have improved the pain drastically -PT/OT consulted HYPOKALEMIA: resolved -patient mentions had one episode of vomiting due to severe pain -replete and recheck PHYSICAL EXAM ON DAY OF DISCHARGE: GENERAL: Patient is in no acute distress. HEENT: No acute trauma, normocephalic, mucous membranes moist, no nasal congestion, no scleral icterus. NECK: No stridor, trachea is midline. LUNGS: Clear to auscultation bilaterally, no wheeze, no rhonchi, breath sounds equal. HEART: Without murmurs gallops or rubs, regular rate and rhythm. ABDOMEN: Soft, nontender, bowel sounds positive. EXTREMITIES: No cyanosis or edema, full range of motion of all the joints without pain or difficulty, no signs for acute trauma. NEUROLOGIC: Oriented x 3, no acute motor or sensory deficits, no focal weakness. SKIN: No rash, no jaundice, no diaphoresis. Total time spent on discharge = 35 This includes examination of the patient, discharge planning, medication reconciliation, and communication with other providers. Discharge Instructions see patient instructions
== END 2017-07-01 16:22 | disposition home or self-care (01) ==
LOC: C.EDB 12:16 → C.MS2W 16:09 → ENRESERV 16:55
PROVIDERS: ADMIT Hospitalist; ATTEND Internal Medicine
DX: M70.62 Trochanteric bursitis, left hip (principal); M25.552 Pain in left hip; M46.1 Sacroiliitis, not elsewhere classified; E87.6 Hypokalemia; Z83.3 Family history of diabetes mellitus; Z82.49 Family history of ischemic heart disease and other diseases of the circulatory system; Z83.6 Family history of other diseases of the respiratory system; Z88.2 Allergy status to sulfonamides